=== PATIENT | female | born 1955 | race Caucasian/White ===

== ENCOUNTER 2017-07-03 21:02 | Inpatient (IN) | payer OTHER ==
[~2017-07-03] VITALS: Ht 152.4 cm; Wt 68.0 kg
[~2017-07-03 21:02] MED LIST: ATOR40TA28 PO; CLOP75TA32 PO; Captopril PO; FAMO-136 PO; FURO20TA4 PO; IPRA4AER IH; LORA0.5T2 PO; METO25 PO; NITR0.4T SL; TRAM50TA2 PO; WARF-67 PO; WARF4TAB72 PO
[2017-07-03 21:35] LABS: BASOPHILS % (AUTO) 0.6 % (0.0-5.0); EOSINOPHILS % (AUTO) 1.9 % (0.0-8.0); HEMATOCRIT 44.3 % (36-48); LYMPHOCYTES % (AUTO) 26.4 % (21.0-51.0); MEAN CORPUSCULAR HEMOGLOBIN 33.8 pg (27.0-33.0); MEAN CORPUSCULAR HGB CONC 34.7 g/dL (32.0-36.0); MEAN CORPUSCULAR VOLUME 97.4 fL (79-99); MONOCYTES % (AUTO) 8.6 % (3.0-13.0); NEUTROPHILS % (AUTO) 62.5 % (40.0-77.0); PLATELET COUNT (AUTO) 290 K/uL (130-400); RED BLOOD CELL COUNT(AUTO) 4.55 MIL/uL (4.00-5.50); RED CELL DISTRIBUTION WIDTH 13.5 % (11.0-15.5); WHITE BLOOD COUNT (AUTO) 11.9 K/uL (4.8-10.8)
[2017-07-03 21:44] LABS: CARBON DIOXIDE 29 mmol/L (21-32); CHLORIDE 104 mmol/L (101-111); CREATININE 0.8 mg/dL (0.5-1.5); GLOMERULAR FILTR. RATE CALC 78 mL/min (>60); GLUCOSE,RANDOM 112 mg/dL (70-105); POTASSIUM 3.3 mmol/L (3.5-5.1); SODIUM SERUM 140 mmol/L (136-145); UREA NITROGEN, BLOOD 10 mg/dL (7-18)
[2017-07-03 21:46] LABS: PARTIAL THROMBOPLASTIN TIME 50.2 SEC (26.3-35.5)
[2017-07-03 21:51] LABS: PROTHROMBIN TIME > 63.0 SEC (9.6-11.6)
[2017-07-03 21:52] LABS: INR 6.64 (0.85-1.15)
[2017-07-03 21:59] LABS: ALANINE AMINOTRANSFERASE 31 U/L (12-78); ALBUMIN 3.6 g/dL (3.5-5.0); ASPARTATE AMINOTRANSFERASE 22 U/L (10-37); BILIRUBIN,TOTAL 0.2 mg/dL (0.2-1.0); CREATINE KINASE MB < 0.5 ng/mL (0.5-3.6); CREATINE KINASE, TOTAL 98 U/L (21-232); MYOGLOBIN 24 ng/mL (10-92); TOTAL PROTEIN, SERUM 7.4 g/dL (6.0-8.3)
[2017-07-03] MEDS ORDERED: IOPAMIDOL-370 75 ML VIAL IV ONE (22:05)
[2017-07-03] MEDS ORDERED: SODIUM CHLORIDE 0.9% 1000ML 1,000 ML IV SCH (23:45)
[2017-07-03] MEDS ORDERED: HYDRALAZINE HCL 20 MG/ML VIAL IV PRN (23:45)
[2017-07-04] MEDS ORDERED: ASPIRIN 325 MG TABLET ONE (00:14)
[2017-07-04] MEDS ORDERED: POTASSIUM CHLORIDE 10% ELIXIR 20 MEQ/15 ML UDCUP PO PRN (00:15)
[2017-07-04] MEDS ORDERED: POTASSIUM CHLORIDE 20 MEQ ERTAB PO PRN (00:15)
[2017-07-04] MEDS ORDERED: LIDOCAINE HCL-MPF 1% 2ML VIAL IJ PRN (00:15)
[2017-07-04] MEDS ORDERED: ONDANSETRON HCL MDV 20ML 2 MG/ML VIAL IVP PRN (00:15)
[2017-07-04] MEDS ORDERED: POTASSIUM CHLORIDE 20MEQ/100ML 100 ML IV PRN (00:15)
[2017-07-04 01:03] LABS: APPEARANCE,URINE Clear (CLEAR); BILIRUBIN,URINE Negative (NEGATIVE); COLOR,URINE Yellow (YELLOW); GLUCOSE, URINE (UA) Negative (NEGATIVE); KETONES,URINE Negative (NEGATIVE); LEUKOCYTE ESTERASE ,URINE Negative (NEGATIVE); NITRATE,URINE Negative (NEGATIVE); OCCULT BLOOD,URINE Negative (NEGATIVE); PROTEIN,URINE Negative (NEGATIVE)
[2017-07-04 01:11] LABS: AMPHET/METH SCREEN,URINE NEGATIVE (NEGATIVE); BARBITURATE SCREEN, URINE NEGATIVE (NEGATIVE); BENZODIAZEPINES SCREEN,URINE NEGATIVE (NEGATIVE); CANNABINOID SCREEN,URINE NEGATIVE (NEGATIVE); COCAINE SCREEN,URINE NEGATIVE (NEGATIVE); OPIATE SCREEN,URINE NEGATIVE (NEGATIVE); PHENCYCLIDINE SCREEN,URINE NEGATIVE (NEGATIVE)
[2017-07-04 02:54] VITALS: BP 107/63
[2017-07-04] MEDS: PHYTONADIONE 10 MG/1 ML AMP SQ SCH ×2 (03:30→19:09)
[2017-07-04] MEDS: PHYTONADIONE 10 MG/1 ML AMP ONE ×2 (03:53→04:29)
[2017-07-04] MEDS ORDERED: LORA10TA7 PO (04:23)
[2017-07-04] MEDS ORDERED: DOCU-116 PO (04:23)
[2017-07-04] MEDS ORDERED: LISI-617 PO (04:23)
[2017-07-04] MEDS ORDERED: ASCO-477 PO (04:23)
[2017-07-04] MEDS ORDERED: FOLI0.4T2 PO (04:23)
[2017-07-04] MEDS ORDERED: CYCL5TAB PO (04:23)
[2017-07-04 07:08] LABS: BASOPHILS % (AUTO) 0.5 % (0.0-5.0); EOSINOPHILS % (AUTO) 2.6 % (0.0-8.0); HEMATOCRIT 40.1 % (36-48); LYMPHOCYTES % (AUTO) 32.3 % (21.0-51.0); MEAN CORPUSCULAR HEMOGLOBIN 34.2 pg (27.0-33.0); MEAN CORPUSCULAR VOLUME 97.7 fL (79-99); MONOCYTES % (AUTO) 10.2 % (3.0-13.0); NEUTROPHILS % (AUTO) 54.4 % (40.0-77.0); PLATELET COUNT (AUTO) 243 K/uL (130-400); RED BLOOD CELL COUNT(AUTO) 4.11 MIL/uL (4.00-5.50); WHITE BLOOD COUNT (AUTO) 7.9 K/uL (4.8-10.8)
[2017-07-04 07:14] LABS: HEMOGLOBIN A1C 5.4 % (4.0-6.0)
[2017-07-04 07:19] LABS: CREATININE 0.6 mg/dL (0.5-1.5)
[2017-07-04 08:08] VITALS: BP 90/53
[2017-07-04 08:25] LABS: INR 6.34 (0.85-1.15); PROTHROMBIN TIME > 63.0 SEC (9.6-11.6)
[2017-07-04] MEDS ORDERED: ATOR40TA71 PO (10:53)
[2017-07-04] MEDS ORDERED: WARF4TAB72 PO (10:53)
[2017-07-04] MEDS ORDERED: WARF-67 PO (10:53)
[2017-07-04] MEDS: CLOPIDOGREL BISULFATE 75 MG TAB PO SCH (11:00)
[2017-07-04] MEDS: ASPIRIN 81MG TAB.CHEW PO SCH (11:00)
[2017-07-04] MEDS: FAMOTIDINE 20MG TAB 20 MG TAB PO SCH ×2 (11:00→20:17)
[2017-07-04 11:45] VITALS: BP 101/58
[2017-07-04] MEDS ORDERED: ACETAMINOPHEN 325 MG TAB ONE (13:31)
[2017-07-04] MEDS ORDERED: ACETAMINOPHEN 325 MG TAB PO PRN ×2 (15:45)
[2017-07-04 16:00] VITALS: BP 106/61
[2017-07-04 19:30] VITALS: BP 105/61
[2017-07-04] MEDS: ATORVASTATIN CALCIUM 40 MG TABLET PO SCH (20:17)
[2017-07-04 23:37] VITALS: BP 100/58
[2017-07-05 03:19] LABS: BASOPHILS % (AUTO) 0.8 % (0.0-5.0); EOSINOPHILS % (AUTO) 3.4 % (0.0-8.0); LYMPHOCYTES % (AUTO) 43.4 % (21.0-51.0); MEAN CORPUSCULAR HEMOGLOBIN 33.1 pg (27.0-33.0); MEAN CORPUSCULAR HGB CONC 33.8 g/dL (32.0-36.0); MEAN CORPUSCULAR VOLUME 97.9 fL (79-99); MONOCYTES % (AUTO) 9.9 % (3.0-13.0); NEUTROPHILS % (AUTO) 42.5 % (40.0-77.0); PLATELET COUNT (AUTO) 222 K/uL (130-400); RED BLOOD CELL COUNT(AUTO) 4.09 MIL/uL (4.00-5.50); RED CELL DISTRIBUTION WIDTH 13.6 % (11.0-15.5); WHITE BLOOD COUNT (AUTO) 6.8 K/uL (4.8-10.8)
[2017-07-05 03:26] LABS: CREATININE 0.6 mg/dL (0.5-1.5); POTASSIUM 3.9 mmol/L (3.5-5.1)
[2017-07-05 03:27] LABS: INR 2.55 (0.85-1.15); PARTIAL THROMBOPLASTIN TIME 35.6 SEC (26.3-35.5); PROTHROMBIN TIME 26.3 SEC (9.6-11.6)
[2017-07-05 03:35] VITALS: BP 93/55
[2017-07-05 07:43] VITALS: BP 105/65
[2017-07-05] MEDS: ASPIRIN 81MG TAB.CHEW PO SCH (09:25)
[2017-07-05] MEDS: FAMOTIDINE 20MG TAB 20 MG TAB PO SCH ×2 (09:25→20:46)
[2017-07-05] MEDS: CLOPIDOGREL BISULFATE 75 MG TAB PO SCH (09:25)
[2017-07-05 11:35] VITALS: BP 114/73
[2017-07-05] MEDS ORDERED: WARF2.5T47 PO (15:32)
[2017-07-05 16:12] VITALS: BP 137/79
[2017-07-05] MEDS ORDERED: WARFARIN SODIUM 2.5 MG TAB PO ONE (16:45)
[2017-07-05 19:47] VITALS: BP 112/68
[2017-07-05] MEDS: ATORVASTATIN CALCIUM 40 MG TABLET PO SCH (20:47)
== END 2017-07-05 22:00 | disposition home or self-care (01) | DRG 47 ==
LOC: EDH 21:02 → EDHIP 21:03 → 2AH 07-04 02:43
PROVIDERS: ADMIT Internal Medicine Nephrology; ATTEND Internal Medicine Nephrology
DX: G45.9 Transient cerebral ischemic attack, unspecified (principal); I11.0 Hypertensive heart disease with heart failure; I50.30 Unspecified diastolic (congestive) heart failure; R47.81 Slurred speech; E78.5 Hyperlipidemia, unspecified; E87.6 Hypokalemia; F17.210 Nicotine dependence, cigarettes, uncomplicated; I25.10 Atherosclerotic heart disease of native coronary artery without angina pectoris; R79.1 Abnormal coagulation profile; J44.9 Chronic obstructive pulmonary disease, unspecified; I25.2 Old myocardial infarction; Z79.82 Long term (current) use of aspirin; Z79.01 Long term (current) use of anticoagulants; Z79.899 Other long term (current) drug therapy; Z90.710 Acquired absence of both cervix and uterus; Z86.718 Personal history of other venous thrombosis and embolism; Z86.73 Personal history of transient ischemic attack (TIA), and cerebral infarction without residual deficits; Z82.49 Family history of ischemic heart disease and other diseases of the circulatory system; Z83.3 Family history of diabetes mellitus
CPT/HCPCS: 36415; 70450; 70496; 70498; 70544; 70547; 70551; 71045; 80048; 80053; 80061; 80305; 81003; 82550; 82553; 82948; 83036; 83874; 84484; 85025; 85610; 85730; 93005; 93306; 93970; J3430; J7030; Q9967

== ENCOUNTER 2017-08-02 18:34 | Inpatient (IN) | payer OTHER ==
[~2017-08-02] VITALS: Ht 152.4 cm; Wt 66.7 kg
[~2017-08-02 18:34] MED LIST changes: +ASCO-477 PO; -ATOR40TA28 PO; +ATOR40TA71 PO; +CYCL5TAB PO; -Captopril PO; +DOCU-116 PO; +FOLI0.4T2 PO; +LISI-617 PO; -LORA0.5T2 PO; +LORA10TA7 PO; -TRAM50TA2 PO; -WARF-67 PO; +WARF2.5T47 PO; -WARF4TAB72 PO
[2017-08-02 19:05] LABS: BASOPHILS % (AUTO) 0.5 % (0.0-5.0); EOSINOPHILS % (AUTO) 1.7 % (0.0-8.0); HEMATOCRIT 42.1 % (36-48); LYMPHOCYTES % (AUTO) 34.8 % (21.0-51.0); MEAN CORPUSCULAR HGB CONC 35.1 g/dL (32.0-36.0); MEAN CORPUSCULAR VOLUME 96.7 fL (79-99); MONOCYTES % (AUTO) 7.9 % (3.0-13.0); NEUTROPHILS % (AUTO) 55.1 % (40.0-77.0); NUCLEATED RED BLOOD CELLS 0.1 % (0.0-0.19); PLATELET COUNT (AUTO) 287 K/uL (130-400); RED BLOOD CELL COUNT(AUTO) 4.35 MIL/uL (4.00-5.50); RED CELL DISTRIBUTION WIDTH 13.2 % (11.0-15.5); WHITE BLOOD COUNT (AUTO) 10.3 K/uL (4.8-10.8)
[2017-08-02 19:12] LABS: CREATININE 0.9 mg/dL (0.5-1.5); POTASSIUM 3.2 mmol/L (3.5-5.1)
[2017-08-02 19:24] LABS: PARTIAL THROMBOPLASTIN TIME 45.8 SEC (26.3-35.5)
[2017-08-02 19:26] LABS: ALBUMIN 3.4 g/dL (3.5-5.0); BILIRUBIN,TOTAL 0.2 mg/dL (0.2-1.0); CREATINE KINASE MB 0.5 ng/mL (0.5-3.6); TOTAL PROTEIN, SERUM 7.1 g/dL (6.0-8.3)
[2017-08-02 19:54] LABS: INR 4.78 (0.85-1.15); PROTHROMBIN TIME 48.7 SEC (9.6-11.6)
[2017-08-02] MEDS ORDERED: MORPHINE SULFATE 4 MG/1ML SYG IVP PRN (23:15)
[2017-08-03 02:13] VITALS: BP 104/65
[2017-08-03] MEDS ORDERED: NITROGLYCERIN 0.4 MG SL TAB SL PRN ×2 (04:45→06:45)
[2017-08-03 04:50] VITALS: BP 103/65
[2017-08-03 05:22] LABS: HEMATOCRIT 39.8 % (36-48); MEAN CORPUSCULAR HEMOGLOBIN 33.5 pg (27.0-33.0); MEAN CORPUSCULAR HGB CONC 34.5 g/dL (32.0-36.0); MEAN CORPUSCULAR VOLUME 97.1 fL (79-99); PLATELET COUNT (AUTO) 241 K/uL (130-400); RED CELL DISTRIBUTION WIDTH 13.4 % (11.0-15.5); WHITE BLOOD COUNT (AUTO) 7.4 K/uL (4.8-10.8)
[2017-08-03 05:34] LABS: BILIRUBIN,TOTAL 0.2 mg/dL (0.2-1.0); CREATININE 0.7 mg/dL (0.5-1.5); POTASSIUM 3.5 mmol/L (3.5-5.1); TOTAL PROTEIN, SERUM 6.4 g/dL (6.0-8.3)
[2017-08-03 05:40] LABS: INR 5.07 (0.85-1.15); PROTHROMBIN TIME 51.6 SEC (9.6-11.6)
[2017-08-03] MEDS ORDERED: POTASSIUM CHLORIDE 10% ELIXIR 20 MEQ/15 ML UDCUP PO PRN ×2 (05:45)
[2017-08-03] MEDS ORDERED: POTASSIUM CHLORIDE 20 MEQ ERTAB PO PRN (05:45)
[2017-08-03] MEDS ORDERED: POTASSIUM CHLORIDE 20MEQ/100ML 100 ML IV PRN ×2 (05:45)
[2017-08-03] MEDS ORDERED: LIDOCAINE HCL-MPF 1% 2ML VIAL IVP PRN ×2 (05:45)
[2017-08-03] MEDS ORDERED: HYDRALAZINE HCL 20 MG/ML VIAL IV PRN (06:00)
[2017-08-03] MEDS ORDERED: ACETAMINOPHEN 325 MG TAB PO PRN (06:00)
[2017-08-03] MEDS ORDERED: ONDANSETRON HCL 4 MG/2 ML VIAL IV PRN (06:00)
[2017-08-03] MEDS ORDERED: FOLI0.8T PO (06:35)
[2017-08-03] MEDS ORDERED: AEC81 PO (06:35)
[2017-08-03] MEDS ORDERED: WARF2.5T85 PO (06:35)
[2017-08-03] MEDS ORDERED: WARF4TAB72 PO (06:35)
[2017-08-03] MEDS: POTASSIUM CHLORIDE 20 MEQ ERTAB PO PRN ×2 (06:50→09:47)
[2017-08-03 07:55] LABS: CREATINE KINASE MB < 0.5 ng/mL (0.5-3.6); CREATINE KINASE, TOTAL 93 U/L (21-232); MYOGLOBIN 19 ng/mL (10-92); TROPONIN I < 0.04 ng/mL (0.00-0.06)
[2017-08-03 08:00] VITALS: BP 99/63
[2017-08-03] MEDS: FOLIC ACID 0.8 MG PO SCH (09:00)
[2017-08-03] MEDS: DOCUSATE SODIUM 100 MG CAP PO SCH (09:46)
[2017-08-03] MEDS: LORATADINE 10 MG TABLET PO SCH (09:46)
[2017-08-03] MEDS: ASPIRIN 81 MG EC TAB PO SCH (09:46)
[2017-08-03] MEDS: FUROSEMIDE 20 MG TABLET PO SCH (09:46)
[2017-08-03] MEDS: FAMOTIDINE 20MG TAB 20 MG TAB PO SCH ×2 (09:47→20:43)
[2017-08-03] MEDS: LISINOPRIL 5 MG TABLET PO SCH (09:47)
[2017-08-03] MEDS: ASCORBIC ACID 500 MG TAB PO SCH (09:47)
[2017-08-03] MEDS: METOPROLOL TARTRATE 25 MG TAB PO SCH ×2 (09:51→21:00)
[2017-08-03] MEDS: IPRATROPIUM/ALBUTEROL SULFATE 3 ML SOLUTION IH PRN (10:45)
[2017-08-03 11:37] VITALS: BP 114/64
[2017-08-03 14:58] LABS: CREATINE KINASE MB < 0.5 ng/mL (0.5-3.6); CREATINE KINASE, TOTAL 89 U/L (21-232); MYOGLOBIN 19 ng/mL (10-92); TROPONIN I < 0.04 ng/mL (0.00-0.06)
[2017-08-03 15:55] VITALS: BP 97/57
[2017-08-03] MEDS: SODIUM CHLORIDE 0.9% 1000ML 1,000 ML IV SCH ×2 (17:50→17:51)
[2017-08-03 19:25] VITALS: BP 98/55
[2017-08-03] MEDS: CYCLOBENZAPRINE HCL 10 MG TABLET PO SCH (20:43)
[2017-08-03] MEDS: ATORVASTATIN CALCIUM 40 MG TABLET PO SCH (20:43)
[2017-08-04 00:18] VITALS: BP 110/58
[2017-08-04 04:20] VITALS: BP 106/67
[2017-08-04] MEDS: SODIUM CHLORIDE 0.9% 1000ML 1,000 ML IV SCH ×2 (05:27→16:31)
[2017-08-04 05:46] LABS: PARTIAL THROMBOPLASTIN TIME 41.7 SEC (26.3-35.5)
[2017-08-04 05:51] LABS: INR 4.44 (0.85-1.15); PROTHROMBIN TIME 45.3 SEC (9.6-11.6)
[2017-08-04] MEDS: IPRATROPIUM/ALBUTEROL SULFATE 3 ML SOLUTION IH PRN ×2 (07:26→21:10)
[2017-08-04 08:00] VITALS: BP 114/48
[2017-08-04] MEDS: FOLIC ACID 0.8 MG PO SCH (09:00)
[2017-08-04] MEDS: LISINOPRIL 5 MG TABLET PO SCH (09:03)
[2017-08-04] MEDS: FAMOTIDINE 20MG TAB 20 MG TAB PO SCH ×2 (09:03→21:26)
[2017-08-04] MEDS: FUROSEMIDE 20 MG TABLET PO SCH (09:04)
[2017-08-04] MEDS: ASCORBIC ACID 500 MG TAB PO SCH (09:04)
[2017-08-04] MEDS: LORATADINE 10 MG TABLET PO SCH (09:04)
[2017-08-04] MEDS: ASPIRIN 81 MG EC TAB PO SCH (09:04)
[2017-08-04] MEDS: DOCUSATE SODIUM 100 MG CAP PO SCH (09:04)
[2017-08-04 11:53] VITALS: BP 112/62
[2017-08-04 16:00] VITALS: BP 119/64
[2017-08-04 19:05] VITALS: BP 110/66
[2017-08-04] MEDS: METOPROLOL TARTRATE 25 MG TAB PO SCH (21:26)
[2017-08-04] MEDS: ATORVASTATIN CALCIUM 40 MG TABLET PO SCH (21:26)
[2017-08-04] MEDS: CYCLOBENZAPRINE HCL 10 MG TABLET PO SCH (21:28)
[2017-08-05 00:30] VITALS: BP 110/66
[2017-08-05 04:10] VITALS: BP 124/59
[2017-08-05] MEDS: SODIUM CHLORIDE 0.9% 1000ML 1,000 ML IV SCH ×2 (04:48→07:56)
[2017-08-05 06:22] LABS: INR 2.06 (0.85-1.15); PARTIAL THROMBOPLASTIN TIME 33.1 SEC (26.3-35.5); PROTHROMBIN TIME 21.3 SEC (9.6-11.6)
[2017-08-05] MEDS: IPRATROPIUM/ALBUTEROL SULFATE 3 ML SOLUTION IH PRN (07:16)
[2017-08-05] MEDS: METOPROLOL TARTRATE 25 MG TAB PO SCH (08:15)
[2017-08-05] MEDS: DOCUSATE SODIUM 100 MG CAP PO SCH (08:15)
[2017-08-05] MEDS: FUROSEMIDE 20 MG TABLET PO SCH (08:16)
[2017-08-05] MEDS: LISINOPRIL 5 MG TABLET PO SCH (08:16)
[2017-08-05] MEDS: LORATADINE 10 MG TABLET PO SCH (08:16)
[2017-08-05] MEDS: FAMOTIDINE 20MG TAB 20 MG TAB PO SCH (08:16)
[2017-08-05] MEDS: ASCORBIC ACID 500 MG TAB PO SCH (08:17)
[2017-08-05] MEDS: FOLIC ACID 0.8 MG PO SCH (08:17)
[2017-08-05] MEDS: ASPIRIN 81 MG EC TAB PO SCH (08:17)
[2017-08-05 08:52] VITALS: BP 108/62
[2017-08-05 12:05] VITALS: BP 130/75
[2017-08-05] MEDS ORDERED: IPRATROPIUM/ALBUTEROL SULFATE 3 ML SOLUTION IH PRN (12:45)
[2017-08-05] MEDS ORDERED: WARF3TAB59 PO (16:10)
[2017-08-05 16:33] VITALS: BP 122/66
[2017-08-05] MEDS ORDERED: WARFARIN SODIUM 2 MG TAB PO ONE (16:45)
== END 2017-08-05 16:50 | disposition home or self-care (01) | DRG 313 ==
LOC: EDH 18:34 → EDHIP 18:35 → UNDOADMIN 22:30 → 3CH 08-03 01:40
PROVIDERS: ADMIT Family Medicine; ATTEND Family Medicine
DX: R07.89 Other chest pain (principal); I25.10 Atherosclerotic heart disease of native coronary artery without angina pectoris; I11.0 Hypertensive heart disease with heart failure; I50.9 Heart failure, unspecified; M79.1 Myalgia; E78.5 Hyperlipidemia, unspecified; Z95.5 Presence of coronary angioplasty implant and graft; E87.6 Hypokalemia; F17.210 Nicotine dependence, cigarettes, uncomplicated; J44.9 Chronic obstructive pulmonary disease, unspecified; R79.1 Abnormal coagulation profile; T45.515A Adverse effect of anticoagulants, initial encounter; Z79.01 Long term (current) use of anticoagulants; I25.2 Old myocardial infarction; Z88.8 Allergy status to other drugs, medicaments and biological substances; Y92.89 Other specified places as the place of occurrence of the external cause; Z90.710 Acquired absence of both cervix and uterus; Z86.73 Personal history of transient ischemic attack (TIA), and cerebral infarction without residual deficits; Z83.3 Family history of diabetes mellitus; Z82.49 Family history of ischemic heart disease and other diseases of the circulatory system
CPT/HCPCS: 36415; 71045; 80053; 82550; 82553; 83874; 84132; 84484; 85025; 85027; 85610; 85730; 93005; 94640; 94664; 99291; J7030

== ENCOUNTER 2017-09-13 20:23 | Emergency (ER) | payer OTHER ==
[~2017-09-13 20:23] MED LIST changes: +AEC81 PO; -FOLI0.4T2 PO; +FOLI0.8T PO; -WARF2.5T47 PO; +WARF3TAB59 PO
[2017-09-13 21:07] LABS: BASOPHILS % (AUTO) 0.6 % (0.0-5.0); EOSINOPHILS % (AUTO) 2.1 % (0.0-8.0); HEMATOCRIT 40.9 % (36-48); LYMPHOCYTES % (AUTO) 22.2 % (21.0-51.0); MEAN CORPUSCULAR HEMOGLOBIN 32.1 pg (27.0-33.0); MEAN CORPUSCULAR VOLUME 94.3 fL (79-99); MONOCYTES % (AUTO) 9.5 % (3.0-13.0); NEUTROPHILS % (AUTO) 65.6 % (40.0-77.0); PLATELET COUNT (AUTO) 347 K/uL (130-400); RED BLOOD CELL COUNT(AUTO) 4.33 MIL/uL (4.00-5.50); RED CELL DISTRIBUTION WIDTH 13.8 % (11.0-15.5)
[2017-09-13 21:18] LABS: PARTIAL THROMBOPLASTIN TIME 42.7 SEC (26.3-35.5)
[2017-09-13 21:19] LABS: POTASSIUM 3.4 mmol/L (3.5-5.1)
[2017-09-13 21:28] LABS: ALBUMIN 3.5 g/dL (3.5-5.0); BILIRUBIN,TOTAL 0.2 mg/dL (0.2-1.0); TOTAL PROTEIN, SERUM 7.3 g/dL (6.0-8.3)
[2017-09-13 21:41] LABS: CREATINE KINASE MB 0.5 ng/mL (0.5-3.6); CREATINE KINASE, TOTAL 91 U/L (21-232); INR 4.06 (0.85-1.15); MYOGLOBIN 28 ng/mL (10-92); TROPONIN I < 0.04 ng/mL (0.00-0.06)
[2017-09-13 21:54] LABS: PROTHROMBIN TIME 41.5 SEC (9.6-11.6)
[2017-09-27] MEDS ORDERED: CALC-909 PO (00:53)
[2017-09-27] MEDS ORDERED: WARF4TAB72 PO (00:53)
[2017-09-27] MEDS ORDERED: MECL12.585 PO (00:53)
[2017-09-27] MEDS ORDERED: CYAN-35 PO (00:53)
== END 2017-09-14 03:46 | disposition home or self-care (01) ==
LOC: EDH 20:23
DX: T45.511A Poisoning by anticoagulants, accidental (unintentional), initial encounter (principal); H81.10 Benign paroxysmal vertigo, unspecified ear; E78.5 Hyperlipidemia, unspecified; I10 Essential (primary) hypertension; I25.2 Old myocardial infarction; J44.9 Chronic obstructive pulmonary disease, unspecified; Z88.6 Allergy status to analgesic agent; Z88.8 Allergy status to other drugs, medicaments and biological substances; Z86.73 Personal history of transient ischemic attack (TIA), and cerebral infarction without residual deficits; Z72.0 Tobacco use; Z79.899 Other long term (current) drug therapy; Y92.89 Other specified places as the place of occurrence of the external cause
CPT/HCPCS: 36415; 70450; 70551; 80053; 82550; 82553; 82948; 83874; 84484; 85025; 85610; 85730; 93005

== ENCOUNTER 2018-01-05 18:30 | Inpatient (IN) | payer OTHER ==
[~2018-01-05] VITALS: Ht 152.4 cm; Wt 67.6 kg
[~2018-01-05 18:30] MED LIST changes: -AEC81 PO; -ASCO-477 PO; +ASCO500C18 PO; +ATOR40TA69 PO; -ATOR40TA71 PO; +CALC600T12 PO; +CLOP75TA14 PO; -CLOP75TA32 PO; +CYAN-35 PO; +CYCL10 PO; -CYCL5TAB PO; -IPRA4AER IH; +LORA10CA9 PO; -LORA10TA7 PO; +MECL12.585 PO; -METO25 PO; +METO25TA6 PO; -WARF3TAB59 PO
[2018-01-05 19:14] LABS: BASOPHILS % (AUTO) 0.8 % (0.0-5.0); CREATININE 0.6 mg/dL (0.5-1.5); EOSINOPHILS % (AUTO) 2.4 % (0.0-8.0); HEMATOCRIT 47.5 % (36-48); LYMPHOCYTES % (AUTO) 38.5 % (21.0-51.0); MEAN CORPUSCULAR HEMOGLOBIN 28.4 pg (27.0-33.0); MEAN CORPUSCULAR HGB CONC 32.7 g/dL (32.0-36.0); MEAN CORPUSCULAR VOLUME 86.9 fL (79-99); MONOCYTES % (AUTO) 10.2 % (3.0-13.0); NEUTROPHILS % (AUTO) 48.1 % (40.0-77.0); PLATELET COUNT (AUTO) 242 K/uL (130-400); POTASSIUM 4.2 mmol/L (3.5-5.1); RED BLOOD CELL COUNT(AUTO) 5.46 MIL/uL (4.00-5.50); RED CELL DISTRIBUTION WIDTH 23.8 % (11.0-15.5)
[2018-01-05 19:18] LABS: ALBUMIN 3.6 g/dL (3.5-5.0); BILIRUBIN,TOTAL 0.4 mg/dL (0.2-1.0); TOTAL PROTEIN, SERUM 7.1 g/dL (6.0-8.3)
[2018-01-05 19:55] LABS: INR 2.34 (0.85-1.15); PARTIAL THROMBOPLASTIN TIME 41.9 SEC (26.3-35.5); PROTHROMBIN TIME 24.2 SEC (9.6-11.6)
[2018-01-05] MEDS ORDERED: NITROGLYCERIN 1GM/1 INCH PACKET TD ONE (20:05)
[2018-01-05] MEDS ORDERED: ASPIRIN 325 MG TABLET ONE (20:05)
[2018-01-05] MEDS ORDERED: NITROGLYCERIN 0.4 MG SL TAB SL PRN (21:15)
[2018-01-05 21:30] VITALS: BP 130/75
[2018-01-05] MEDS: SODIUM CHLORIDE 0.9% 1000ML 1,000 ML IV SCH (21:50)
[2018-01-05] MEDS ORDERED: ONDANSETRON HCL 4 MG/2 ML VIAL IV PRN (22:00)
[2018-01-05] MEDS ORDERED: ACETAMINOPHEN 325 MG TAB PO PRN (22:00)
[2018-01-05] MEDS ORDERED: fiber PO (22:11)
[2018-01-05] MEDS ORDERED: WARF3TAB59 PO (22:11)
[2018-01-05] MEDS ORDERED: IPRA4AER IH (22:11)
[2018-01-05] MEDS ORDERED: iron PO (22:11)
[2018-01-05] MEDS ORDERED: ALBU1.252 IH (22:11)
[2018-01-05] MEDS ORDERED: METOPROLOL TARTRATE 25 MG TAB ONE (22:27)
[2018-01-05] MEDS ORDERED: ATORVASTATIN CALCIUM 40 MG TABLET ONE (22:27)
[2018-01-05] MEDS ORDERED: CYCLOBENZAPRINE HCL 10 MG TABLET ONE (22:27)
[2018-01-05] MEDS ORDERED: FAMOTIDINE 20MG TAB 20 MG TAB ONE (22:27)
[2018-01-05] MEDS ORDERED: SODIUM CHLORIDE 0.9% 1000ML 1,000 ML IV ONE (22:28)
[2018-01-05 23:23] VITALS: BP 100/52
[2018-01-06 01:10] LABS: CREATINE KINASE, TOTAL 92 U/L (21-232); MYOGLOBIN 25 ng/mL (10-92); TROPONIN I < 0.04 ng/mL (0.00-0.06)
[2018-01-06 04:14] VITALS: BP 103/59
[2018-01-06] MEDS ORDERED: ALBUTEROL SULFATE 0.042% 1.25 MG/3 ML INH IH ONE (05:58)
[2018-01-06] MEDS: ALBUTEROL SULFATE 0.042% 1.25 MG/3 ML INH IH SCH ×2 (06:23→19:49)
[2018-01-06] MEDS: SODIUM CHLORIDE 0.9% 1000ML 1,000 ML IV SCH ×2 (06:42→18:41)
[2018-01-06] MEDS ORDERED: IPRATROPIUM/ALBUTEROL SULFATE 3 ML SOLUTION IH PRN (07:20)
[2018-01-06 07:21] LABS: BASOPHILS % (AUTO) 0.8 % (0.0-5.0); EOSINOPHILS % (AUTO) 3.4 % (0.0-8.0); HEMATOCRIT 43.5 % (36-48); LYMPHOCYTES % (AUTO) 35.2 % (21.0-51.0); MEAN CORPUSCULAR HEMOGLOBIN 28.8 pg (27.0-33.0); MEAN CORPUSCULAR HGB CONC 32.9 g/dL (32.0-36.0); MEAN CORPUSCULAR VOLUME 87.6 fL (79-99); MONOCYTES % (AUTO) 10.3 % (3.0-13.0); NEUTROPHILS % (AUTO) 50.3 % (40.0-77.0); PLATELET COUNT (AUTO) 226 K/uL (130-400); RED BLOOD CELL COUNT(AUTO) 4.97 MIL/uL (4.00-5.50); RED CELL DISTRIBUTION WIDTH 23.5 % (11.0-15.5); WHITE BLOOD COUNT (AUTO) 6.7 K/uL (4.8-10.8)
[2018-01-06 07:35] LABS: ALBUMIN 2.9 g/dL (3.5-5.0); BILIRUBIN,TOTAL 0.2 mg/dL (0.2-1.0); CREATININE 0.8 mg/dL (0.5-1.5); POTASSIUM 4.7 mmol/L (3.5-5.1); TOTAL PROTEIN, SERUM 6.2 g/dL (6.0-8.3)
[2018-01-06 07:36] LABS: INR 2.6 (0.85-1.15); PROTHROMBIN TIME 26.8 SEC (9.6-11.6)
[2018-01-06 07:39] LABS: CHOLESTEROL 111 mg/dL (<200); CREATINE KINASE, TOTAL 90 U/L (21-232); HDL CHOLESTEROL 33 mg/dL (35-85); LDL DIRECT 61 mg/dL (0-99); MYOGLOBIN 20 ng/mL (10-92); TRIGLYCERIDES 106 mg/dL (30-200); TROPONIN I < 0.04 ng/mL (0.00-0.06)
[2018-01-06 08:00] VITALS: BP 112/64
[2018-01-06] MEDS ORDERED: FAMOTIDINE 20MG TAB 20 MG TAB PO SCH (09:00)
[2018-01-06] MEDS: ASCORBIC ACID 500 MG TAB PO SCH (09:22)
[2018-01-06] MEDS: FUROSEMIDE 20 MG TABLET PO SCH (09:22)
[2018-01-06] MEDS: LISINOPRIL 5 MG TABLET PO SCH (09:22)
[2018-01-06] MEDS: FOLIC ACID 1 MG TABLET PO SCH (09:22)
[2018-01-06] MEDS: CLOPIDOGREL BISULFATE 75 MG TAB PO SCH (09:22)
[2018-01-06] MEDS: PANTOPRAZOLE SODIUM 40 MG TABLET.DR PO SCH (09:22)
[2018-01-06] MEDS: LORATADINE 10 MG TABLET PO SCH (09:22)
[2018-01-06] MEDS: DOCUSATE SODIUM 100 MG CAP PO SCH (09:23)
[2018-01-06] MEDS: CYANOCOBALAMIN (VITAMIN B-12) 1,000 MCG TABLET PO SCH (09:23)
[2018-01-06] MEDS: PSYLLIUM SEED 1 EACH PACKET PO SCH ×2 (09:23→20:16)
[2018-01-06] MEDS: FERROUS SULFATE 325 MG TABLET.DR PO SCH (09:23)
[2018-01-06] MEDS: CALCIUM CARBONATE 500 MG TABLET PO SCH (09:23)
[2018-01-06] MEDS: METOPROLOL TARTRATE 25 MG TAB PO SCH ×2 (09:23→20:16)
[2018-01-06 12:00] VITALS: BP 122/65
[2018-01-06 16:00] VITALS: BP 116/69
[2018-01-06] MEDS ORDERED: WARFARIN SODIUM 1 MG TAB PO SCH (16:00)
[2018-01-06 19:00] VITALS: BP 116/70
[2018-01-06] MEDS: METHYLPREDNISOLONE SOD SUCC 40MG/ML 1ML IVP SCH (20:15)
[2018-01-06] MEDS ORDERED: CYCLOBENZAPRINE HCL 10 MG TABLET PO SCH (21:00)
[2018-01-06] MEDS ORDERED: ATORVASTATIN CALCIUM 40 MG TABLET PO SCH (21:00)
[2018-01-06 23:07] VITALS: BP 110/66
[2018-01-07] MEDS: SODIUM CHLORIDE 0.9% 1000ML 1,000 ML IV SCH ×2 (02:09→13:50)
[2018-01-07 03:20] VITALS: BP 99/57
[2018-01-07 05:35] LABS: BASOPHILS % (AUTO) 0.7 % (0.0-5.0); CREATININE 0.6 mg/dL (0.5-1.5); EOSINOPHILS % (AUTO) 0.1 % (0.0-8.0); HEMATOCRIT 43.9 % (36-48); LYMPHOCYTES % (AUTO) 21.3 % (21.0-51.0); MEAN CORPUSCULAR HEMOGLOBIN 28.3 pg (27.0-33.0); MEAN CORPUSCULAR HGB CONC 32.4 g/dL (32.0-36.0); MEAN CORPUSCULAR VOLUME 87.6 fL (79-99); MONOCYTES % (AUTO) 2.8 % (3.0-13.0); NEUTROPHILS % (AUTO) 75.1 % (40.0-77.0); NUCLEATED RED BLOOD CELLS 0.1 % (0.0-0.19); PLATELET COUNT (AUTO) 217 K/uL (130-400); POTASSIUM 4.6 mmol/L (3.5-5.1); RED BLOOD CELL COUNT(AUTO) 5.02 MIL/uL (4.00-5.50); RED CELL DISTRIBUTION WIDTH 23.2 % (11.0-15.5); WHITE BLOOD COUNT (AUTO) 5.4 K/uL (4.8-10.8)
[2018-01-07 05:39] LABS: INR 2.74 (0.85-1.15); PROTHROMBIN TIME 28.2 SEC (9.6-11.6)
[2018-01-07 05:40] LABS: HEMOGLOBIN A1C 5.8 % (4.0-6.0)
[2018-01-07] MEDS: ALBUTEROL SULFATE 0.042% 1.25 MG/3 ML INH IH SCH (06:21)
[2018-01-07 08:00] VITALS: BP 103/60
[2018-01-07] MEDS: METHYLPREDNISOLONE SOD SUCC 40MG/ML 1ML IVP SCH (09:00)
[2018-01-07] MEDS: CLOPIDOGREL BISULFATE 75 MG TAB PO SCH (11:15)
[2018-01-07] MEDS: FUROSEMIDE 20 MG TABLET PO SCH (11:15)
[2018-01-07] MEDS: LORATADINE 10 MG TABLET PO SCH (11:15)
[2018-01-07] MEDS: CYANOCOBALAMIN (VITAMIN B-12) 1,000 MCG TABLET PO SCH (11:15)
[2018-01-07] MEDS: ASCORBIC ACID 500 MG TAB PO SCH (11:16)
[2018-01-07] MEDS: FERROUS SULFATE 325 MG TABLET.DR PO SCH (11:16)
[2018-01-07] MEDS: CALCIUM CARBONATE 500 MG TABLET PO SCH (11:16)
[2018-01-07] MEDS: DOCUSATE SODIUM 100 MG CAP PO SCH (11:16)
[2018-01-07] MEDS: METOPROLOL TARTRATE 25 MG TAB PO SCH (11:16)
[2018-01-07] MEDS: PANTOPRAZOLE SODIUM 40 MG TABLET.DR PO SCH (11:16)
[2018-01-07] MEDS: LISINOPRIL 5 MG TABLET PO SCH (11:16)
[2018-01-07] MEDS: FOLIC ACID 1 MG TABLET PO SCH (11:17)
[2018-01-07] MEDS: PSYLLIUM SEED 1 EACH PACKET PO SCH (11:17)
[2018-01-07 12:00] VITALS: BP 115/77
== END 2018-01-07 14:15 | disposition home or self-care (01) | DRG 203 ==
LOC: EDH 18:30 → EDHIP 18:31 → 3DH 20:48
PROVIDERS: ADMIT Internal Medicine; ATTEND Internal Medicine
DX: M94.0 Chondrocostal junction syndrome [Tietze] (principal); E78.5 Hyperlipidemia, unspecified; R07.89 Other chest pain; I25.10 Atherosclerotic heart disease of native coronary artery without angina pectoris; I10 Essential (primary) hypertension; J44.9 Chronic obstructive pulmonary disease, unspecified; I45.10 Unspecified right bundle-branch block; F17.200 Nicotine dependence, unspecified, uncomplicated; I25.2 Old myocardial infarction; Z95.5 Presence of coronary angioplasty implant and graft; Z90.710 Acquired absence of both cervix and uterus; Z86.73 Personal history of transient ischemic attack (TIA), and cerebral infarction without residual deficits; Z86.718 Personal history of other venous thrombosis and embolism; Z88.5 Allergy status to narcotic agent; Z83.3 Family history of diabetes mellitus; Z82.5 Family history of asthma and other chronic lower respiratory diseases; Z82.49 Family history of ischemic heart disease and other diseases of the circulatory system; Z82.3 Family history of stroke; Z82.0 Family history of epilepsy and other diseases of the nervous system; Z80.9 Family history of malignant neoplasm, unspecified; Z88.8 Allergy status to other drugs, medicaments and biological substances
CPT/HCPCS: 36415; 71045; 80048; 80053; 80061; 82550; 83036; 83735; 83874; 83880; 84484; 85025; 85610; 85730; 93005; 94640; 94664; 94760; J2920; J7030

== ENCOUNTER 2018-05-19 20:02 | Emergency (ER) | payer OTHER ==
[~2018-05-19 20:02] MED LIST changes: +ALBU1.252 IH; +IPRA4AER IH; -MECL12.585 PO; +WARF3TAB59 PO; +fiber PO; +iron PO
[2018-05-19] MEDS ORDERED: ASPIRIN 325 MG TABLET ONE (20:31)
[2018-05-19 20:36] LABS: BASOPHILS % (AUTO) 0.7 % (0.0-5.0); HEMATOCRIT 48.1 % (36-48); LYMPHOCYTES % (AUTO) 26.2 % (21.0-51.0); MEAN CORPUSCULAR HEMOGLOBIN 34.2 pg (27.0-33.0); MEAN CORPUSCULAR HGB CONC 34.1 g/dL (32.0-36.0); MEAN CORPUSCULAR VOLUME 100.1 fL (79-99); MONOCYTES % (AUTO) 6.9 % (3.0-13.0); NEUTROPHILS % (AUTO) 64.2 % (40.0-77.0); PLATELET COUNT (AUTO) 253 K/uL (130-400); RED CELL DISTRIBUTION WIDTH 13.7 % (11.0-15.5); WHITE BLOOD COUNT (AUTO) 10.6 K/uL (4.8-10.8)
[2018-05-19 20:51] LABS: CREATININE 0.8 mg/dL (0.5-1.5); POTASSIUM 3.9 mmol/L (3.5-5.1)
[2018-05-19 20:55] LABS: ALBUMIN 3.3 g/dL (3.5-5.0); BILIRUBIN,TOTAL 0.2 mg/dL (0.2-1.0); TOTAL PROTEIN, SERUM 6.8 g/dL (6.0-8.3)
[2018-05-19 21:03] LABS: INR 2.31 (0.85-1.15); PARTIAL THROMBOPLASTIN TIME 38.9 SEC (26.3-35.5); PROTHROMBIN TIME 23.9 SEC (9.6-11.6)
[2018-05-19] MEDS ORDERED: NITROGLYCERIN 1GM/1 INCH PACKET TD ONE (21:08)
== END 2018-05-20 00:49 | disposition home or self-care (01) ==
LOC: EDH 20:02
DX: R07.2 Precordial pain (principal); R42 Dizziness and giddiness; J44.9 Chronic obstructive pulmonary disease, unspecified; E78.5 Hyperlipidemia, unspecified; I10 Essential (primary) hypertension; I25.2 Old myocardial infarction; Z86.73 Personal history of transient ischemic attack (TIA), and cerebral infarction without residual deficits; Z88.5 Allergy status to narcotic agent; Z88.6 Allergy status to analgesic agent; Z88.8 Allergy status to other drugs, medicaments and biological substances; Z90.49 Acquired absence of other specified parts of digestive tract; Z90.710 Acquired absence of both cervix and uterus; Z98.890 Other specified postprocedural states
CPT/HCPCS: 36415; 71045; 80053; 82550; 84484; 85025; 85378; 85610; 85730; 93005

== ENCOUNTER 2018-05-20 08:33 | Emergency (ER) | payer OTHER ==
[2018-05-20 10:32] LABS: BASOPHILS % (AUTO) 0.7 % (0.0-5.0); EOSINOPHILS % (AUTO) 2.5 % (0.0-8.0); LYMPHOCYTES % (AUTO) 25.5 % (21.0-51.0); MEAN CORPUSCULAR HEMOGLOBIN 34.5 pg (27.0-33.0); MEAN CORPUSCULAR HGB CONC 34.4 g/dL (32.0-36.0); MEAN CORPUSCULAR VOLUME 100.2 fL (79-99); MONOCYTES % (AUTO) 7.4 % (3.0-13.0); NEUTROPHILS % (AUTO) 63.9 % (40.0-77.0); NUCLEATED RED BLOOD CELLS 0.1 % (0.0-0.19); PLATELET COUNT (AUTO) 243 K/uL (130-400); RED BLOOD CELL COUNT(AUTO) 5.09 MIL/uL (4.00-5.50); RED CELL DISTRIBUTION WIDTH 13.6 % (11.0-15.5); WHITE BLOOD COUNT (AUTO) 9.7 K/uL (4.8-10.8)
[2018-05-20 10:34] LABS: CREATININE 0.7 mg/dL (0.5-1.5); POTASSIUM 4.3 mmol/L (3.5-5.1)
[2018-05-20 10:38] LABS: ALBUMIN 3.6 g/dL (3.5-5.0); BILIRUBIN,TOTAL 0.3 mg/dL (0.2-1.0); TOTAL PROTEIN, SERUM 7.3 g/dL (6.0-8.3)
[2018-05-20 10:46] LABS: INR 2.41 (0.85-1.15); PARTIAL THROMBOPLASTIN TIME 40.3 SEC (26.3-35.5); PROTHROMBIN TIME 24.9 SEC (9.6-11.6)
== END 2018-05-20 11:07 | disposition home or self-care (01) ==
LOC: EDH 08:33
DX: R07.89 Other chest pain (principal); R06.02 Shortness of breath; R11.0 Nausea; I10 Essential (primary) hypertension; E78.5 Hyperlipidemia, unspecified; I25.2 Old myocardial infarction; J44.9 Chronic obstructive pulmonary disease, unspecified; Z86.73 Personal history of transient ischemic attack (TIA), and cerebral infarction without residual deficits; Z88.6 Allergy status to analgesic agent; Z72.0 Tobacco use; V49.59XA Passenger injured in collision with other motor vehicles in traffic accident, initial encounter; Y93.89 Activity, other specified; Y92.89 Other specified places as the place of occurrence of the external cause; Y99.8 Other external cause status
CPT/HCPCS: 36415; 71045; 80053; 82550; 84484; 85025; 85610; 85730; 93005

== ENCOUNTER 2018-10-24 17:05 | Emergency (ER) | payer SELFPAY ==
[2018-10-24 17:49] LABS: BASOPHILS % (AUTO) 0.7 % (0.0-5.0); EOSINOPHILS % (AUTO) 2.5 % (0.0-8.0); HEMATOCRIT 46.1 % (36-48); LYMPHOCYTES % (AUTO) 31.2 % (21.0-51.0); MEAN CORPUSCULAR HEMOGLOBIN 34.7 pg (27.0-33.0); MEAN CORPUSCULAR VOLUME 99.3 fL (79-99); MONOCYTES % (AUTO) 9.4 % (3.0-13.0); NEUTROPHILS % (AUTO) 56.2 % (40.0-77.0); PLATELET COUNT (AUTO) 244 K/uL (130-400); RED BLOOD CELL COUNT(AUTO) 4.64 MIL/uL (4.00-5.50); WHITE BLOOD COUNT (AUTO) 9.5 K/uL (4.8-10.8)
[2018-10-24 17:59] LABS: CREATININE 0.7 mg/dL (0.5-1.5); POTASSIUM 3.8 mmol/L (3.5-5.1)
[2018-10-24 18:02] LABS: PARTIAL THROMBOPLASTIN TIME 43.4 SEC (26.3-35.5)
[2018-10-24 18:03] LABS: ALBUMIN 3.4 g/dL (3.5-5.0); BILIRUBIN,DIRECT 0.1 mg/dL (0.0-0.3); BILIRUBIN,TOTAL 0.2 mg/dL (0.2-1.0); TOTAL PROTEIN, SERUM 6.9 g/dL (6.0-8.3)
[2018-10-24] MEDS ORDERED: SODIUM CHLORIDE 0.9% 1000ML 1,000 ML IV ONE ×2 (18:35→19:19)
[2018-10-24 18:36] LABS: INR 3.5 (0.85-1.15); PROTHROMBIN TIME 35.9 SEC (9.6-11.6)
[2018-10-24] MEDS ORDERED: IOHEXOL-350 75 ML VIAL IV ONE (19:25)
== END 2018-10-24 22:11 | disposition home or self-care (01) ==
LOC: EDH 17:05
DX: R09.1 Pleurisy (principal); J44.9 Chronic obstructive pulmonary disease, unspecified; E78.5 Hyperlipidemia, unspecified; I10 Essential (primary) hypertension; I25.2 Old myocardial infarction; Z86.711 Personal history of pulmonary embolism; Z79.01 Long term (current) use of anticoagulants; Z86.73 Personal history of transient ischemic attack (TIA), and cerebral infarction without residual deficits; Z98.890 Other specified postprocedural states; Z90.49 Acquired absence of other specified parts of digestive tract; Z90.710 Acquired absence of both cervix and uterus; Z88.6 Allergy status to analgesic agent; Z88.1 Allergy status to other antibiotic agents; Z88.8 Allergy status to other drugs, medicaments and biological substances
CPT/HCPCS: 36415; 71046; 71275; 80048; 80076; 82550; 83690; 84484 ×2; 85025; 85610; 85730; 93005 ×2; 96360; 96361; 99285; J7030 ×2; Q9967

== ENCOUNTER 2019-01-19 17:38 | Emergency (ER) | payer OTHER ==
[2019-01-19 18:37] LABS: BASOPHILS % (AUTO) 0.6 % (0.0-5.0); EOSINOPHILS % (AUTO) 2.3 % (0.0-8.0); HEMATOCRIT 47.5 % (36-48); LYMPHOCYTES % (AUTO) 23.4 % (21.0-51.0); MEAN CORPUSCULAR HEMOGLOBIN 35.5 pg (27.0-33.0); MEAN CORPUSCULAR HGB CONC 35.2 g/dL (32.0-36.0); MEAN CORPUSCULAR VOLUME 100.9 fL (79-99); MONOCYTES % (AUTO) 7.8 % (3.0-13.0); NEUTROPHILS % (AUTO) 65.9 % (40.0-77.0); NUCLEATED RED BLOOD CELLS 0.1 % (0.0-0.19); PLATELET COUNT (AUTO) 238 K/uL (130-400); RED CELL DISTRIBUTION WIDTH 13.3 % (11.0-15.5); WHITE BLOOD COUNT (AUTO) 8.1 K/uL (4.8-10.8)
[2019-01-19 18:46] LABS: CREATININE 0.8 mg/dL (0.5-1.5); POTASSIUM 3.7 mmol/L (3.5-5.1)
[2019-01-19 18:49] LABS: PARTIAL THROMBOPLASTIN TIME 49.2 SEC (26.3-35.5)
[2019-01-19 18:50] LABS: ALBUMIN 3.5 g/dL (3.5-5.0); BILIRUBIN,TOTAL 0.3 mg/dL (0.2-1.0); TOTAL PROTEIN, SERUM 7.2 g/dL (6.0-8.3)
[2019-01-19 18:55] LABS: APPEARANCE,URINE Clear (CLEAR); BILIRUBIN,URINE Negative (NEGATIVE); COLOR,URINE Yellow (YELLOW); GLUCOSE, URINE (UA) Negative (NEGATIVE); KETONES,URINE Negative (NEGATIVE); LEUKOCYTE ESTERASE ,URINE Trace (NEGATIVE); NITRATE,URINE Negative (NEGATIVE); OCCULT BLOOD,URINE Negative (NEGATIVE); PROTEIN,URINE Negative (NEGATIVE)
[2019-01-19 18:59] LABS: INR 4.96 (0.85-1.15)
[2019-01-19 19:03] LABS: AMPHET/METH SCREEN,URINE NEGATIVE (NEGATIVE); BARBITURATE SCREEN, URINE NEGATIVE (NEGATIVE); BENZODIAZEPINES SCREEN,URINE NEGATIVE (NEGATIVE); CANNABINOID SCREEN,URINE NEGATIVE (NEGATIVE); COCAINE SCREEN,URINE NEGATIVE (NEGATIVE); OPIATE SCREEN,URINE NEGATIVE (NEGATIVE); PHENCYCLIDINE SCREEN,URINE NEGATIVE (NEGATIVE)
[2019-01-19 19:06] LABS: B-TYPE NATRIURETIC PEPTIDE 28 pg/mL (0-100)
[2019-01-19 19:09] LABS: BACTERIA,URINE Few /HPF (None Seen); MUCUS,URINE Few LPF (None Seen)
[2019-01-19] MEDS ORDERED: SODIUM CHLORIDE 0.9% 1000ML 1,000 ML IV ONE (20:16)
== END 2019-01-19 22:49 | disposition home or self-care (01) ==
LOC: EDH 17:38
DX: T45.511A Poisoning by anticoagulants, accidental (unintentional), initial encounter (principal); R55 Syncope and collapse; R07.89 Other chest pain; R42 Dizziness and giddiness; R53.1 Weakness; J44.9 Chronic obstructive pulmonary disease, unspecified; E78.5 Hyperlipidemia, unspecified; I10 Essential (primary) hypertension; I25.2 Old myocardial infarction; Z86.73 Personal history of transient ischemic attack (TIA), and cerebral infarction without residual deficits; Z72.0 Tobacco use; Z90.49 Acquired absence of other specified parts of digestive tract; Z90.710 Acquired absence of both cervix and uterus; Z98.890 Other specified postprocedural states; Z88.5 Allergy status to narcotic agent; Z88.6 Allergy status to analgesic agent; Y92.89 Other specified places as the place of occurrence of the external cause
CPT/HCPCS: 36415; 70450; 71045; 80053; 80305; 81001; 82150; 82550; 83605; 83690; 83880; 84484 ×2; 85025; 85610; 85730; 87040; 87804 ×2; 93005 ×2; 96360; 96361; 99285; J7030

== ENCOUNTER 2019-03-28 18:11 | Inpatient (IN) | payer OTHER ==
[~2019-03-28] VITALS: Ht 152.4 cm; Wt 67.0 kg
[2019-03-28] MEDS ORDERED: SODIUM CHLORIDE 0.9% 1000ML 1,000 ML IV ONE ×2 (18:22→23:59)
[2019-03-28 18:41] LABS: BASOPHILS % (AUTO) 0.6 % (0.0-5.0); EOSINOPHILS % (AUTO) 1.7 % (0.0-8.0); LYMPHOCYTES % (AUTO) 35.9 % (21.0-51.0); MEAN CORPUSCULAR HEMOGLOBIN 33.1 pg (27.0-33.0); MEAN CORPUSCULAR VOLUME 97.6 fL (79-99); MONOCYTES % (AUTO) 10.2 % (3.0-13.0); NEUTROPHILS % (AUTO) 51.4 % (40.0-77.0); PLATELET COUNT (AUTO) 277 K/uL (130-400); RED BLOOD CELL COUNT(AUTO) 4.92 MIL/uL (4.00-5.50); RED CELL DISTRIBUTION WIDTH 12.5 % (11.0-15.5); WHITE BLOOD COUNT (AUTO) 9.3 K/uL (4.8-10.8)
[2019-03-28 19:04] LABS: INR 2.06 (0.85-1.15); PARTIAL THROMBOPLASTIN TIME 33.1 SEC (26.3-35.5)
[2019-03-28 19:17] LABS: CREATININE 0.8 mg/dL (0.5-1.5); POTASSIUM 3.4 mmol/L (3.5-5.1)
[2019-03-28 19:26] LABS: ALBUMIN 3.8 g/dL (3.5-5.0); BILIRUBIN,TOTAL 0.4 mg/dL (0.2-1.0); TOTAL PROTEIN, SERUM 7.5 g/dL (6.0-8.3)
[2019-03-28 20:59] LABS: APPEARANCE,URINE Clear (CLEAR); BILIRUBIN,URINE Negative (NEGATIVE); COLOR,URINE Yellow (YELLOW); GLUCOSE, URINE (UA) Negative (NEGATIVE); KETONES,URINE Negative (NEGATIVE); LEUKOCYTE ESTERASE ,URINE Negative (NEGATIVE); NITRATE,URINE Negative (NEGATIVE); OCCULT BLOOD,URINE Negative (NEGATIVE); PH,URINE 7.5 (5.0-8.0); PROTEIN,URINE Negative (NEGATIVE); UROBILINOGEN,URINE 0.2 mg/dL (0.2-1.0)
[2019-03-28 21:14] LABS: AMPHET/METH SCREEN,URINE NEGATIVE (NEGATIVE); BARBITURATE SCREEN, URINE NEGATIVE (NEGATIVE); BENZODIAZEPINES SCREEN,URINE NEGATIVE (NEGATIVE); CANNABINOID SCREEN,URINE NEGATIVE (NEGATIVE); COCAINE SCREEN,URINE NEGATIVE (NEGATIVE); OPIATE SCREEN,URINE NEGATIVE (NEGATIVE); PHENCYCLIDINE SCREEN,URINE NEGATIVE (NEGATIVE)
[2019-03-28] MEDS: SODIUM CHLORIDE 0.9% 1000ML 1,000 ML IV SCH (23:35)
[2019-03-28] MEDS ORDERED: ONDANSETRON HCL 4 MG/2 ML VIAL IV PRN (23:45)
[2019-03-28] MEDS ORDERED: ACETAMINOPHEN 325 MG TAB PO PRN ×2 (23:45)
[2019-03-28] MEDS ORDERED: FAMOTIDINE/PF 20 MG/2 ML VIAL IV STA (23:47)
[2019-03-28] MEDS ORDERED: FAMOTIDINE/PF 20 MG/2 ML VIAL IV ONE (23:59)
[2019-03-29] VITALS (8 sets, daily range): BP systolic 104–143; BP diastolic 58–75
[2019-03-29 00:05] LABS: HEMOGLOBIN A1C 5.8 % (4.0-6.0)
[2019-03-29 07:11] LABS: BASOPHILS % (AUTO) 0.5 % (0.0-5.0); EOSINOPHILS % (AUTO) 2.6 % (0.0-8.0); HEMATOCRIT 43.3 % (36-48); LYMPHOCYTES % (AUTO) 37.9 % (21.0-51.0); MEAN CORPUSCULAR HEMOGLOBIN 32.1 pg (27.0-33.0); MEAN CORPUSCULAR HGB CONC 32.1 g/dL (32.0-36.0); MONOCYTES % (AUTO) 8.7 % (3.0-13.0); PLATELET COUNT (AUTO) 221 K/uL (130-400); RED BLOOD CELL COUNT(AUTO) 4.33 MIL/uL (4.00-5.50); RED CELL DISTRIBUTION WIDTH 12.5 % (11.0-15.5); WHITE BLOOD COUNT (AUTO) 7.6 K/uL (4.8-10.8)
[2019-03-29 07:48] LABS: ALBUMIN 2.8 g/dL (3.5-5.0); BILIRUBIN,TOTAL 0.2 mg/dL (0.2-1.0); CREATININE 0.7 mg/dL (0.5-1.5); TOTAL PROTEIN, SERUM 5.9 g/dL (6.0-8.3)
[2019-03-29] MEDS: METOPROLOL TARTRATE 25 MG TAB PO SCH ×2 (08:37→20:55)
--- NOTE | 2019-03-29 08:45 | NUR ---
BEDSIDE SWALLOW DONE WITH PATIENT PRIOR TO GIVING PO MEDICATION. NO SIGNS OF ASPIRATION NOTED
[2019-03-29] MEDS ORDERED: NITROGLYCERIN 0.4 MG SL TAB SL PRN (09:00)
[2019-03-29] MEDS: FAMOTIDINE 20MG TAB 20 MG TAB PO SCH ×2 (09:00→20:55)
[2019-03-29] MEDS: CLOPIDOGREL BISULFATE 75 MG TAB PO SCH (09:00)
[2019-03-29] MEDS ORDERED: FAMOTIDINE/PF 20 MG/2 ML VIAL IV SCH (09:00)
[2019-03-29] MEDS ORDERED: METOPROLOL TARTRATE 25 MG TAB PO SCH (09:00)
[2019-03-29] MEDS: LISINOPRIL 5 MG TABLET PO SCH (09:00)
[2019-03-29] MEDS ORDERED: CLOPIDOGREL BISULFATE 75 MG TAB PO SCH (09:00)
[2019-03-29] MEDS ORDERED: IPRATROPIUM/ALBUTEROL SULFATE 3 ML SOLUTION IH PRN (09:00)
[2019-03-29] MEDS ORDERED: CALCIUM 600 + VITAMIN D 400 TABLET PO SCH (09:08)
[2019-03-29] MEDS: SODIUM CHLORIDE 0.9% 1000ML 1,000 ML IV SCH (09:54)
[2019-03-29] MEDS: LORATADINE 10 MG TABLET PO SCH (09:55)
[2019-03-29] MEDS: DOCUSATE SODIUM 100 MG CAP PO SCH (09:55)
[2019-03-29] MEDS: CYANOCOBALAMIN (VITAMIN B-12) 1,000 MCG TABLET PO SCH (09:55)
[2019-03-29] MEDS: PSYLLIUM SEED 1 EACH PACKET PO SCH ×2 (09:55→20:54)
[2019-03-29] MEDS: FUROSEMIDE 20 MG TABLET PO SCH (09:55)
[2019-03-29] MEDS: ASCORBIC ACID 500 MG TAB PO SCH (09:55)
--- NOTE | 2019-03-29 12:05 | NUR ---
NURSE WITH PATIENT DURING FIRST BITES OF LUNCH, TOLERATED WELL. NO SIGN OF ASPIRATION NOTED.
[2019-03-29] MEDS: CALCIUM 600 + VITAMIN D 400 TABLET PO SCH (16:57)
[2019-03-29] MEDS: WARFARIN SODIUM 1 MG TAB PO SCH (16:58)
--- NOTE | 2019-03-29 17:31 | NUR ---
INITIAL: Met with pt this afternoon to discuss dcp. Pt mentions that she lives w room mate Kike. She mentions that he assists her w transportation and helps to purchase her medications. Pt states that prior to admission she was independent w ambulation and ADLs. She states that she does have a chair, nebulizer and crutches. Per pt she feels safe and comfortable to return home at pa. Low income packet provided. CM to continue to follow and wait for Md recommendations. Addendum: 03/29/19 at 1733 by JOSE LOUIS Amended: Links added.
[2019-03-29] MEDS ORDERED: ALBUTEROL SULFATE 0.042% 1.25 MG/3 ML INH IH SCH (18:00)
[2019-03-29] MEDS ORDERED: CYCLOBENZAPRINE HCL 10 MG TABLET PO SCH (21:00)
[2019-03-29] MEDS ORDERED: ATORVASTATIN CALCIUM 20 MG TABLET PO SCH (21:00)
[2019-03-29] MEDS ORDERED: ATORVASTATIN CALCIUM 40 MG TABLET PO SCH (21:00)
[2019-03-30 04:00] VITALS: BP 101/57
[2019-03-30 04:25] LABS: BASOPHILS % (AUTO) 0.8 % (0.0-5.0); EOSINOPHILS % (AUTO) 2.7 % (0.0-8.0); LYMPHOCYTES % (AUTO) 39.5 % (21.0-51.0); MEAN CORPUSCULAR HEMOGLOBIN 32.6 pg (27.0-33.0); MEAN CORPUSCULAR VOLUME 98.9 fL (79-99); MONOCYTES % (AUTO) 10.4 % (3.0-13.0); NEUTROPHILS % (AUTO) 46.3 % (40.0-77.0); PLATELET COUNT (AUTO) 226 K/uL (130-400); RED BLOOD CELL COUNT(AUTO) 4.35 MIL/uL (4.00-5.50); RED CELL DISTRIBUTION WIDTH 12.4 % (11.0-15.5); WHITE BLOOD COUNT (AUTO) 6.7 K/uL (4.8-10.8)
[2019-03-30 04:38] LABS: CREATININE 0.7 mg/dL (0.5-1.5); POTASSIUM 4.2 mmol/L (3.5-5.1)
[2019-03-30 07:20] VITALS: BP 119/56
[2019-03-30] MEDS: FAMOTIDINE 20MG TAB 20 MG TAB PO SCH (08:59)
[2019-03-30] MEDS: FUROSEMIDE 20 MG TABLET PO SCH (09:00)
[2019-03-30] MEDS: CLOPIDOGREL BISULFATE 75 MG TAB PO SCH (09:00)
[2019-03-30] MEDS: DOCUSATE SODIUM 100 MG CAP PO SCH (09:00)
[2019-03-30] MEDS: LISINOPRIL 5 MG TABLET PO SCH (09:00)
[2019-03-30] MEDS: CALCIUM 600 + VITAMIN D 400 TABLET PO SCH ×2 (09:00→16:36)
[2019-03-30] MEDS: PSYLLIUM SEED 1 EACH PACKET PO SCH (09:01)
[2019-03-30] MEDS: METOPROLOL TARTRATE 25 MG TAB PO SCH (09:01)
[2019-03-30] MEDS: CYANOCOBALAMIN (VITAMIN B-12) 1,000 MCG TABLET PO SCH (09:01)
[2019-03-30] MEDS: ASCORBIC ACID 500 MG TAB PO SCH (09:01)
[2019-03-30] MEDS: LORATADINE 10 MG TABLET PO SCH (09:01)
--- NOTE | 2019-03-30 10:00 | NUR ---
DYSPHAGIA EVAL COMPLETED. -S/S OF ASPIRATION. RECOMMEND REGULAR TEXTURE, THIN LIQUIDS; PILLS WHOLE WITH LIQUIDS. Addendum: 03/30/19 at 1302 by DANILO HAWKINS, [facility] Amended: Links added.
--- NOTE | 2019-03-30 10:15 | NUR ---
COGNITIVE EVAL COMPLETE. COGNITIVE-LINGUISTIC ABILITIES WITHIN FUNCTIONAL LIMITS. EVALUATION: Pt AAOX3. Pt REQUESTS WANTS AND NEEDS INDEPENDENTLY. Pt INTELLIGIBLE AT 100% ACCURACY TO THE UNFAMILIAR LISTENER. Pt COMMUNICATING AT CONVERSATIONAL LEVEL WITH NO DEFICITS IDENTIFIED AT THIS TIME. Pt COMPLETED COGNITIVE-LINGUISTIC EVALUATION TARGETING: ORIENTATION, ATTENTION/CONCENTRATION, MEMORY (IMMEDIATE, SHORT-TERM AND LONG-TERM), PROBLEM SOLVING, LOGIC/REASONING/INFERENCE, THOUGHT ORGANIZATION, FUNCTIONAL MATH AND TELLING TIME. Pt ABLE TO COMPLETE TASKS WITH CORRECT AND TIMELY ANSWERS TO ALL SECTIONS. G-CODES SPOKEN LANGUAGE EXPRESSION: [id number] Addendum: 03/30/19 at 1305 by DANILO HAWKINS [facility] Amended: Links added.
[2019-03-30 11:30] VITALS: BP 116/66
[2019-03-30 15:30] VITALS: BP 133/58
[2019-03-30] MEDS: WARFARIN SODIUM 1 MG TAB PO SCH (16:36)
[2019-03-30] MEDS ORDERED: WARFARIN SODIUM 2 MG TAB PO SCH (17:45)
--- NOTE | 2019-03-30 18:20 | NUR ---
DISCHARGE PT TAKEN TO PRIVATE VEHICLE VIA WC BY MYSELF, Isacc MORRIS RN. NO DISTRESS NOTED. SIGNIFICANT OTHER AWAITING FOR PT IN VEHICLE.
== END 2019-03-30 18:15 | disposition home or self-care (01) | DRG 69 ==
LOC: EDH 18:11 → EDHIP 18:12 → 2DH 03-29 02:24
PROVIDERS: ADMIT Hospitalist; ATTEND Hospitalist
DX: G45.9 Transient cerebral ischemic attack, unspecified (principal); D68.2 Hereditary deficiency of other clotting factors; E78.5 Hyperlipidemia, unspecified; F17.210 Nicotine dependence, cigarettes, uncomplicated; I10 Essential (primary) hypertension; I25.2 Old myocardial infarction; J44.9 Chronic obstructive pulmonary disease, unspecified; Z79.01 Long term (current) use of anticoagulants; Z79.02 Long term (current) use of antithrombotics/antiplatelets; Z82.0 Family history of epilepsy and other diseases of the nervous system; Z82.3 Family history of stroke; Z82.49 Family history of ischemic heart disease and other diseases of the circulatory system; Z82.5 Family history of asthma and other chronic lower respiratory diseases; Z83.3 Family history of diabetes mellitus; Z86.73 Personal history of transient ischemic attack (TIA), and cerebral infarction without residual deficits; Z90.710 Acquired absence of both cervix and uterus; Z90.49 Acquired absence of other specified parts of digestive tract; Z88.1 Allergy status to other antibiotic agents; Z88.5 Allergy status to narcotic agent; Z88.8 Allergy status to other drugs, medicaments and biological substances
CPT/HCPCS: 36415; 70450; 70551; 80048; 80053; 80305; 81003; 82550; 82948; 83036; 84484; 85025; 85610; 85730; 92522; 92610; 93005; 94640; 94664; 97039; 99291; G0378; J3490; J7030

== ENCOUNTER 2019-04-19 17:56 | Emergency (ER) | payer OTHER ==
[~2019-04-19 17:56] MED LIST changes: -FOLI0.8T PO; -iron PO
[2019-04-19 19:27] LABS: BASOPHILS % (AUTO) 0.5 % (0.0-5.0); EOSINOPHILS % (AUTO) 1.3 % (0.0-8.0); HEMATOCRIT 48.3 % (36-48); LYMPHOCYTES % (AUTO) 24.8 % (21.0-51.0); MEAN CORPUSCULAR HEMOGLOBIN 33.3 pg (27.0-33.0); MEAN CORPUSCULAR HGB CONC 34.6 g/dL (32.0-36.0); MEAN CORPUSCULAR VOLUME 96.2 fL (79-99); MONOCYTES % (AUTO) 7.4 % (3.0-13.0); NEUTROPHILS % (AUTO) 65.7 % (40.0-77.0); PLATELET COUNT (AUTO) 264 K/uL (130-400); RED BLOOD CELL COUNT(AUTO) 5.02 MIL/uL (4.00-5.50); RED CELL DISTRIBUTION WIDTH 12.4 % (11.0-15.5)
[2019-04-19 19:45] LABS: INR 3.1 (0.85-1.15); PARTIAL THROMBOPLASTIN TIME 41.4 SEC (26.3-35.5); PROTHROMBIN TIME 31.2 SEC (9.6-11.6)
[2019-04-19 19:51] LABS: CREATININE 0.8 mg/dL (0.5-1.5); POTASSIUM 3.3 mmol/L (3.5-5.1)
[2019-04-19 19:55] LABS: ALBUMIN 3.6 g/dL (3.5-5.0); BILIRUBIN,TOTAL 0.3 mg/dL (0.2-1.0); TOTAL PROTEIN, SERUM 6.9 g/dL (6.0-8.3)
[2019-04-19 20:19] LABS: B-TYPE NATRIURETIC PEPTIDE 38 pg/mL (0-100)
[2019-04-19] MEDS ORDERED: POTASSIUM CHLORIDE 20 MEQ ERTAB PO ONE (22:11)
== END 2019-04-19 22:32 | disposition home or self-care (01) ==
LOC: EDH 17:56
DX: R07.89 Other chest pain (principal); E87.6 Hypokalemia; I10 Essential (primary) hypertension; I25.2 Old myocardial infarction; Z88.6 Allergy status to analgesic agent; Z88.8 Allergy status to other drugs, medicaments and biological substances; Z90.49 Acquired absence of other specified parts of digestive tract; Z86.73 Personal history of transient ischemic attack (TIA), and cerebral infarction without residual deficits; Z72.0 Tobacco use
CPT/HCPCS: 36415; 71045; 80053; 82550; 83880; 84484; 85025; 85610; 85730; 93005

== ENCOUNTER 2019-05-26 11:01 | Emergency (ER) | payer OTHER ==
[2019-05-26 12:44] LABS: BASOPHILS % (AUTO) 0.8 % (0.0-5.0); EOSINOPHILS % (AUTO) 2.6 % (0.0-8.0); HEMATOCRIT 48.4 % (36-48); LYMPHOCYTES % (AUTO) 34.7 % (21.0-51.0); MEAN CORPUSCULAR HEMOGLOBIN 32.8 pg (27.0-33.0); MEAN CORPUSCULAR HGB CONC 33.1 g/dL (32.0-36.0); MEAN CORPUSCULAR VOLUME 99.2 fL (79-99); MONOCYTES % (AUTO) 10.7 % (3.0-13.0); NEUTROPHILS % (AUTO) 50.8 % (40.0-77.0); PLATELET COUNT (AUTO) 307 K/uL (130-400); RED BLOOD CELL COUNT(AUTO) 4.88 MIL/uL (4.00-5.50); RED CELL DISTRIBUTION WIDTH 12.9 % (11.0-15.5); WHITE BLOOD COUNT (AUTO) 9.1 K/uL (4.8-10.8)
[2019-05-26 12:50] LABS: CREATININE 0.8 mg/dL (0.5-1.5); PARTIAL THROMBOPLASTIN TIME 49.9 SEC (26.3-35.5); POTASSIUM 3.8 mmol/L (3.5-5.1)
[2019-05-26 13:27] LABS: PROTHROMBIN TIME 41.5 SEC (9.6-11.6)
[2019-05-26 13:28] LABS: INR 4.18 (0.85-1.15)
== END 2019-05-26 14:03 | disposition home or self-care (01) ==
LOC: EDH 11:01
DX: M79.605 Pain in left leg (principal); M79.604 Pain in right leg; I10 Essential (primary) hypertension; I25.2 Old myocardial infarction; Z90.49 Acquired absence of other specified parts of digestive tract; Z72.0 Tobacco use; Z88.5 Allergy status to narcotic agent; Z88.8 Allergy status to other drugs, medicaments and biological substances; Z88.1 Allergy status to other antibiotic agents; Z88.6 Allergy status to analgesic agent
CPT/HCPCS: 36415; 80048; 85025; 85610; 85730; 93970

== ENCOUNTER 2019-05-31 18:04 | Inpatient (IN) | payer OTHER ==
[~2019-05-31] VITALS: Ht 152.4 cm; Wt 68.4 kg
[2019-05-31 18:33] LABS: BASOPHILS % (AUTO) 0.8 % (0.0-5.0); EOSINOPHILS % (AUTO) 1.9 % (0.0-8.0); HEMATOCRIT 46.3 % (36-48); LYMPHOCYTES % (AUTO) 31.1 % (21.0-51.0); MEAN CORPUSCULAR HEMOGLOBIN 32.8 pg (27.0-33.0); MEAN CORPUSCULAR HGB CONC 33.7 g/dL (32.0-36.0); MEAN CORPUSCULAR VOLUME 97.5 fL (79-99); MONOCYTES % (AUTO) 10.3 % (3.0-13.0); NEUTROPHILS % (AUTO) 55.8 % (40.0-77.0); PLATELET COUNT (AUTO) 297 K/uL (130-400); RED BLOOD CELL COUNT(AUTO) 4.75 MIL/uL (4.00-5.50); RED CELL DISTRIBUTION WIDTH 12.6 % (11.0-15.5); WHITE BLOOD COUNT (AUTO) 9.3 K/uL (4.8-10.8)
[2019-05-31 18:44] LABS: CREATININE 0.9 mg/dL (0.5-1.5); POTASSIUM 3.8 mmol/L (3.5-5.1)
[2019-05-31 18:46] LABS: PARTIAL THROMBOPLASTIN TIME 43.9 SEC (26.3-35.5)
[2019-05-31] MEDS ORDERED: ASPIRIN 325 MG TABLET ONE (18:46)
[2019-05-31 18:49] LABS: ALBUMIN 3.6 g/dL (3.5-5.0); BILIRUBIN,TOTAL 0.3 mg/dL (0.2-1.0); TOTAL PROTEIN, SERUM 7.7 g/dL (6.0-8.3)
[2019-05-31 18:50] LABS: INR 3.56 (0.85-1.15); PROTHROMBIN TIME 36.6 SEC (9.6-11.6)
[2019-05-31] MEDS ORDERED: NITROGLYCERIN 0.4 MG SL TAB SL ONE (20:28)
[2019-05-31] MEDS ORDERED: LACTULOSE 20 GM/30 ML UDCUP PO PRN (21:15)
[2019-05-31] MEDS ORDERED: HYDRALAZINE HCL 20 MG/ML VIAL IV PRN (21:15)
[2019-05-31] MEDS ORDERED: NITROGLYCERIN 0.4 MG SL TAB SL PRN (21:15)
[2019-05-31] MEDS ORDERED: ONDANSETRON HCL 4 MG/2 ML VIAL IV PRN (21:15)
[2019-05-31] MEDS ORDERED: ACETAMINOPHEN 325 MG TAB PO PRN ×2 (21:15)
[2019-05-31] MEDS ORDERED: ACETAMINOPHEN 325 MG TAB ONE (21:27)
[2019-05-31] MEDS ORDERED: IPRATROPIUM/ALBUTEROL SULFATE 3 ML SOLUTION IH ONE (22:54)
[2019-05-31 23:42] VITALS: BP 115/64
--- NOTE | 2019-06-01 00:13 | NUR ---
HOME MEDS Paged Sid Llamas Np re pts home meds,pending reconciliation.
[2019-06-01 02:44] LABS: BASOPHILS % (AUTO) 0.4 % (0.0-5.0); EOSINOPHILS % (AUTO) 2.7 % (0.0-8.0); HEMATOCRIT 42.2 % (36-48); LYMPHOCYTES % (AUTO) 30.3 % (21.0-51.0); MEAN CORPUSCULAR HEMOGLOBIN 32.6 pg (27.0-33.0); MEAN CORPUSCULAR HGB CONC 33.2 g/dL (32.0-36.0); MEAN CORPUSCULAR VOLUME 98.4 fL (79-99); MONOCYTES % (AUTO) 9.7 % (3.0-13.0); NEUTROPHILS % (AUTO) 56.5 % (40.0-77.0); PLATELET COUNT (AUTO) 267 K/uL (130-400); RED BLOOD CELL COUNT(AUTO) 4.29 MIL/uL (4.00-5.50); RED CELL DISTRIBUTION WIDTH 12.6 % (11.0-15.5); WHITE BLOOD COUNT (AUTO) 8.9 K/uL (4.8-10.8)
[2019-06-01 02:56] LABS: PARTIAL THROMBOPLASTIN TIME 44.1 SEC (26.3-35.5)
[2019-06-01 02:58] LABS: CREATININE 0.9 mg/dL (0.5-1.5); POTASSIUM 3.5 mmol/L (3.5-5.1)
[2019-06-01 03:08] LABS: PROTHROMBIN TIME 42.5 SEC (9.6-11.6)
[2019-06-01 03:09] LABS: INR 4.16 (0.85-1.15)
[2019-06-01 03:43] VITALS: BP 98/58
--- NOTE | 2019-06-01 05:23 | NUR ---
SLEPT Pt slept fairly well.Voiced no complaints of chest pain.
[2019-06-01] MEDS: IPRATROPIUM/ALBUTEROL SULFATE 3 ML SOLUTION IH PRN ×2 (07:04→18:21)
[2019-06-01 07:19] VITALS: BP 105/62
[2019-06-01] MEDS ORDERED: LISINOPRIL 5 MG TABLET PO SCH (09:00)
[2019-06-01] MEDS ORDERED: FUROSEMIDE 20 MG TABLET PO SCH (09:00)
[2019-06-01] MEDS: FAMOTIDINE 20MG TAB 20 MG TAB PO SCH ×2 (09:05→21:20)
[2019-06-01] MEDS: DOCUSATE SODIUM 100 MG CAP PO SCH (09:05)
[2019-06-01] MEDS: CYANOCOBALAMIN (VITAMIN B-12) 1,000 MCG TABLET PO SCH (09:05)
[2019-06-01] MEDS: ASPIRIN 325 MG TABLET PO SCH (09:05)
[2019-06-01] MEDS: CLOPIDOGREL BISULFATE 75 MG TAB PO SCH (09:05)
[2019-06-01] MEDS: ASCORBIC ACID 500 MG TAB PO SCH (09:05)
[2019-06-01] MEDS: METOPROLOL TARTRATE 25 MG TAB PO SCH ×2 (09:06→21:19)
[2019-06-01] MEDS: CALCIUM CARBONATE 500 MG TABLET PO SCH ×2 (09:06→21:20)
[2019-06-01] MEDS: LORATADINE 10 MG TABLET PO SCH (09:06)
[2019-06-01 11:02] VITALS: BP 110/65
--- NOTE | 2019-06-01 11:36 | NUR ---
DR. YOUNG WAS PAGED FOR THE CONSULT AT THIS TIME. WAITING FOR THE CALL BACK.
--- NOTE | 2019-06-01 12:54 | NUR ---
paged dr. marx again for the consult.
--- NOTE | 2019-06-01 15:10 | NUR ---
Nutrition Education Pt denies need for Coumadin Food and Drug Interaction and demonstrates previous knowledge of nutrition education. Pt received Heart Healthy Nutrition education. ELDA provided reference materials and handouts and answered all of Pt's questions or concerns. Pt was encouraged to notify as additional questions or concerns arise. Addendum: 06/01/19 at [address] Amended: Links added.
--- NOTE | 2019-06-01 15:24 | NUR ---
RD Notification Pt admitted for Chest pain. Pt with coumadin medication - Pt denies need for nutrition education. ELDA provided heart healthy nutrition education. Recommend to continue Heart healthy diet order. ELDA to continue to monitor. Addendum: 06/01/19 at [address] Amended: Links added.
[2019-06-01 15:42] VITALS: BP 100/62
--- NOTE | 2019-06-01 16:39 | NUR ---
INITIAL SW met with patient. Patient lives with friend, Kike Gomez, [phone]. No home services. DME: shower chair, BPM, cane, nebulizer. Patient is able to complete ADL's and drives. PCP is Dr. Joshua Lucero. Pharmacy is [facility]. DCP is home. Demographic sheet indicates that patient has no insurance or benefits.but she states that she has [facility]. Patient is a [place] citizen and has worked in the past. She was provided with community resources for post hospitalization follow up. Patient was also provided with Good RX card for prescriptions and educated on [facility] $4 medication program and [facility] Plus $5 medication program. Patient is being assisted by [employer] for financial matters. Addendum: 06/01/19 at 1643 by RONEN MALONEY SS Amended: Links added.
--- NOTE | 2019-06-01 16:44 | NUR ---
call dr. marx on his cellphone and notified him of the consult. he verbalized that he will see the patient tonight.
[2019-06-01] MEDS ORDERED: LIDOCAINE HCL-MPF 1% 2ML VIAL IV PRN (18:00)
[2019-06-01] MEDS ORDERED: POTASSIUM CHLORIDE 10% ELIXIR 20 MEQ/15 ML UDCUP PO PRN (18:00)
[2019-06-01] MEDS ORDERED: POTASSIUM CHLORIDE 10MEQ/100ML 100 ML IV PRN (18:00)
[2019-06-01] MEDS: POTASSIUM CHLORIDE 20 MEQ ERTAB PO PRN ×2 (18:30→18:56)
[2019-06-01 19:00] VITALS: BP 114/59
--- NOTE | 2019-06-01 20:00 | NUR ---
STATUS Pt denies chest pain,service dog at bedside.Pt is awaiting for Cardiology to see her.
[2019-06-01] MEDS ORDERED: CYCLOBENZAPRINE HCL 10 MG TABLET PO SCH (21:00)
[2019-06-01] MEDS ORDERED: ATORVASTATIN CALCIUM 20 MG TABLET PO SCH (21:00)
[2019-06-01] MEDS ORDERED: ATORVASTATIN CALCIUM 40 MG TABLET PO SCH (21:00)
[2019-06-02] VITALS: BP 108/63
[2019-06-02 04:00] VITALS: BP 107/62
--- NOTE | 2019-06-02 04:23 | NUR ---
PAIN FREE Pt slept well.Voiced no complaints of chest pain.
[2019-06-02 05:39] LABS: BASOPHILS % (AUTO) 0.8 % (0.0-5.0); EOSINOPHILS % (AUTO) 4.5 % (0.0-8.0); HEMATOCRIT 42.1 % (36-48); LYMPHOCYTES % (AUTO) 36.4 % (21.0-51.0); MEAN CORPUSCULAR HEMOGLOBIN 32.3 pg (27.0-33.0); MEAN CORPUSCULAR HGB CONC 32.5 g/dL (32.0-36.0); MEAN CORPUSCULAR VOLUME 99.3 fL (79-99); MONOCYTES % (AUTO) 10.4 % (3.0-13.0); NEUTROPHILS % (AUTO) 47.6 % (40.0-77.0); PLATELET COUNT (AUTO) 254 K/uL (130-400); RED BLOOD CELL COUNT(AUTO) 4.24 MIL/uL (4.00-5.50); RED CELL DISTRIBUTION WIDTH 12.7 % (11.0-15.5); WHITE BLOOD COUNT (AUTO) 7.8 K/uL (4.8-10.8)
[2019-06-02 06:09] LABS: INR 2.58 (0.85-1.15); PROTHROMBIN TIME 26.9 SEC (9.6-11.6)
[2019-06-02 06:10] LABS: CREATININE 0.7 mg/dL (0.5-1.5); POTASSIUM 4.4 mmol/L (3.5-5.1)
[2019-06-02] MEDS: IPRATROPIUM/ALBUTEROL SULFATE 3 ML SOLUTION IH PRN (06:46)
[2019-06-02 07:47] VITALS: BP_SYST 106; BP_SYST 132; BP_DIAS 60; BP_DIAS 61
[2019-06-02] MEDS: FAMOTIDINE 20MG TAB 20 MG TAB PO SCH (08:44)
[2019-06-02] MEDS: CLOPIDOGREL BISULFATE 75 MG TAB PO SCH (08:44)
[2019-06-02] MEDS: ASCORBIC ACID 500 MG TAB PO SCH (08:45)
[2019-06-02] MEDS: ASPIRIN 325 MG TABLET PO SCH (08:45)
[2019-06-02] MEDS: CYANOCOBALAMIN (VITAMIN B-12) 1,000 MCG TABLET PO SCH (08:45)
[2019-06-02] MEDS: CALCIUM CARBONATE 500 MG TABLET PO SCH (08:45)
[2019-06-02] MEDS: METOPROLOL TARTRATE 25 MG TAB PO SCH (08:45)
[2019-06-02] MEDS: DOCUSATE SODIUM 100 MG CAP PO SCH (08:45)
[2019-06-02] MEDS: LORATADINE 10 MG TABLET PO SCH (08:45)
--- NOTE | 2019-06-02 09:35 | NUR ---
CALL DR YOUNG AND PAGED HIM AT THIS TIME. WILL WAIT FOR HIS CALL BACK
[2019-06-02 10:38] VITALS: BP 129/66
== END 2019-06-02 16:00 | disposition home or self-care (01) | DRG 311 ==
LOC: EDH 18:04 → EDHIP 18:05 → OBSVTOIN 18:05 → 3CH 23:11
PROVIDERS: ADMIT Internal Medicine; ATTEND Internal Medicine
DX: I24.9 Acute ischemic heart disease, unspecified (principal); R79.1 Abnormal coagulation profile; I10 Essential (primary) hypertension; F17.210 Nicotine dependence, cigarettes, uncomplicated; E78.5 Hyperlipidemia, unspecified; J44.9 Chronic obstructive pulmonary disease, unspecified; I25.2 Old myocardial infarction; Z86.718 Personal history of other venous thrombosis and embolism; Z95.5 Presence of coronary angioplasty implant and graft; Z90.710 Acquired absence of both cervix and uterus; Z90.49 Acquired absence of other specified parts of digestive tract; Z88.5 Allergy status to narcotic agent; Z88.8 Allergy status to other drugs, medicaments and biological substances; Z86.73 Personal history of transient ischemic attack (TIA), and cerebral infarction without residual deficits; Z80.9 Family history of malignant neoplasm, unspecified; Z82.5 Family history of asthma and other chronic lower respiratory diseases; Z83.3 Family history of diabetes mellitus; Z82.49 Family history of ischemic heart disease and other diseases of the circulatory system; Z82.3 Family history of stroke; Z82.0 Family history of epilepsy and other diseases of the nervous system
CPT/HCPCS: 36415; 71045; 80048; 80053; 82550; 84484; 85025; 85610; 85730; 93005; 94640; 94664; G0378

== ENCOUNTER 2019-07-22 12:44 | Observation (INO) | payer OTHER ==
[~2019-07-22] VITALS: Ht 152.4 cm; Wt 68.0 kg
[2019-07-22 13:09] LABS: BASOPHILS % (AUTO) 0.7 % (0.0-5.0); EOSINOPHILS % (AUTO) 2.9 % (0.0-8.0); HEMATOCRIT 44.6 % (36-48); LYMPHOCYTES % (AUTO) 31.5 % (21.0-51.0); MEAN CORPUSCULAR HEMOGLOBIN 32.6 pg (27.0-33.0); MEAN CORPUSCULAR HGB CONC 33.9 g/dL (32.0-36.0); MEAN CORPUSCULAR VOLUME 96.3 fL (79-99); MONOCYTES % (AUTO) 8.4 % (3.0-13.0); NEUTROPHILS % (AUTO) 56.3 % (40.0-77.0); PLATELET COUNT (AUTO) 280 K/uL (130-400); RED BLOOD CELL COUNT(AUTO) 4.63 MIL/uL (4.00-5.50); RED CELL DISTRIBUTION WIDTH 12.4 % (11.0-15.5); WHITE BLOOD COUNT (AUTO) 8.4 K/uL (4.8-10.8)
[2019-07-22 13:20] LABS: PARTIAL THROMBOPLASTIN TIME 47.2 SEC (26.3-35.5)
[2019-07-22 13:21] LABS: ALBUMIN 3.6 g/dL (3.5-5.0); BILIRUBIN,TOTAL 0.2 mg/dL (0.2-1.0); CREATININE 0.9 mg/dL (0.5-1.5); TOTAL PROTEIN, SERUM 7.2 g/dL (6.0-8.3)
[2019-07-22] MEDS ORDERED: ASPIRIN 325 MG TABLET ONE (13:27)
[2019-07-22 13:36] LABS: B-TYPE NATRIURETIC PEPTIDE 50 pg/mL (0-100)
[2019-07-22 13:58] LABS: INR 5.05 (0.85-1.15); PROTHROMBIN TIME 51.2 SEC (9.6-11.6)
[2019-07-22] MEDS ORDERED: ONDANSETRON HCL 4 MG/2 ML VIAL IVP PRN (15:15)
[2019-07-22 15:53] LABS: CREATINE KINASE, TOTAL 128 U/L (21-232); MYOGLOBIN 21 ng/mL (10-92); TROPONIN I < 0.04 ng/mL (0.00-0.06)
[2019-07-22 17:20] VITALS: BP 100/61
[2019-07-22 19:36] VITALS: BP 107/64
[2019-07-22] MEDS: METOPROLOL TARTRATE 25 MG TAB PO SCH (20:08)
[2019-07-22] MEDS: FAMOTIDINE 20MG TAB 20 MG TAB PO SCH (20:08)
[2019-07-22] MEDS ORDERED: ALBUTEROL SULFATE 0.042% 1.25 MG/3 ML INH IH SCH (21:00)
[2019-07-22] MEDS ORDERED: CYCLOBENZAPRINE HCL 10 MG TABLET PO SCH (21:00)
[2019-07-22] MEDS ORDERED: ATORVASTATIN CALCIUM 40 MG TABLET PO SCH (21:00)
--- NOTE | 2019-07-22 21:00 | NUR ---
PT ABLE TO TAKE MEDIATIONS DIRECTED. NO CHEST PAIN NOTED. EKG FOR 2100 AND NEXT DAY 0500.
[2019-07-22] MEDS: CALCIUM CARBONATE 500 MG TABLET PO SCH (21:14)
[2019-07-22 23:44] VITALS: BP 92/55
[2019-07-23 03:30] VITALS: BP 96/52
[2019-07-23 04:12] LABS: BASOPHILS % (AUTO) 0.4 % (0.0-5.0); EOSINOPHILS % (AUTO) 3.1 % (0.0-8.0); HEMATOCRIT 42.4 % (36-48); LYMPHOCYTES % (AUTO) 36.8 % (21.0-51.0); MEAN CORPUSCULAR HEMOGLOBIN 32.8 pg (27.0-33.0); MEAN CORPUSCULAR HGB CONC 33.5 g/dL (32.0-36.0); MEAN CORPUSCULAR VOLUME 97.9 fL (79-99); MONOCYTES % (AUTO) 10.1 % (3.0-13.0); NEUTROPHILS % (AUTO) 49.5 % (40.0-77.0); PLATELET COUNT (AUTO) 276 K/uL (130-400); RED BLOOD CELL COUNT(AUTO) 4.33 MIL/uL (4.00-5.50); RED CELL DISTRIBUTION WIDTH 12.3 % (11.0-15.5); WHITE BLOOD COUNT (AUTO) 7.4 K/uL (4.8-10.8)
[2019-07-23 04:26] LABS: ALANINE AMINOTRANSFERASE 33 U/L (12-78); ASPARTATE AMINOTRANSFERASE 20 U/L (10-37); BILIRUBIN,TOTAL 0.2 mg/dL (0.2-1.0); CARBON DIOXIDE 29 mmol/L (21-32); CHLORIDE 106 mmol/L (101-111); CREATINE KINASE, TOTAL 86 U/L (21-232); CREATININE 0.9 mg/dL (0.5-1.5); GLOMERULAR FILTR. RATE CALC 68 mL/min (>60); GLUCOSE,RANDOM 104 mg/dL (70-105); MYOGLOBIN 22 ng/mL (10-92); SODIUM SERUM 142 mmol/L (136-145); TOTAL PROTEIN, SERUM 6.2 g/dL (6.0-8.3); TROPONIN I < 0.04 ng/mL (0.00-0.06); UREA NITROGEN, BLOOD 17 mg/dL (7-18)
[2019-07-23] MEDS: ALBUTEROL SULFATE 0.042% 1.25 MG/3 ML INH IH SCH ×2 (06:00→18:00)
[2019-07-23] MEDS: IPRATROPIUM/ALBUTEROL SULFATE 3 ML SOLUTION IH PRN ×2 (06:12→18:24)
[2019-07-23 06:36] LABS: INR 3.54 (0.85-1.15); PROTHROMBIN TIME 36.4 SEC (9.6-11.6)
[2019-07-23 08:00] VITALS: BP 115/47
[2019-07-23] MEDS: FAMOTIDINE 20MG TAB 20 MG TAB PO SCH (08:36)
[2019-07-23] MEDS: CALCIUM CARBONATE 500 MG TABLET PO SCH (08:36)
[2019-07-23] MEDS: METOPROLOL TARTRATE 25 MG TAB PO SCH (08:37)
[2019-07-23] MEDS ORDERED: CYANOCOBALAMIN (VITAMIN B-12) 1,000 MCG TABLET PO SCH (09:00)
[2019-07-23] MEDS ORDERED: DOCUSATE SODIUM 100 MG CAP PO SCH (09:00)
[2019-07-23] MEDS ORDERED: ASCORBIC ACID 500 MG TAB PO SCH (09:00)
[2019-07-23] MEDS ORDERED: LISINOPRIL 5 MG TABLET PO SCH (09:00)
[2019-07-23] MEDS ORDERED: ASPIRIN 81MG TAB.CHEW PO SCH (09:00)
[2019-07-23] MEDS ORDERED: LORATADINE 10 MG TABLET PO SCH (09:00)
[2019-07-23] MEDS ORDERED: FUROSEMIDE 20 MG TABLET PO SCH (09:00)
--- NOTE | 2019-07-23 11:59 | NUR ---
chart reviewed, acf uploaded, note made of pending cardio consult Addendum: 07/23/19 at 1159 by JULES FRANKS RN CM Amended: Links added.
[2019-07-23 12:00] VITALS: BP 95/56
[2019-07-23 13:30] LABS: CREATINE KINASE, TOTAL 86 U/L (21-232); MYOGLOBIN 17 ng/mL (10-92); TROPONIN I < 0.04 ng/mL (0.00-0.06)
[2019-07-23 16:00] VITALS: BP 99/51
[2019-07-23 19:31] VITALS: BP 116/59
--- NOTE | 2019-07-23 19:50 | NUR ---
PT DISCHARGED AT THIS TIME. NO DISTRESS NOTED. TELE PACK REMOVED. IV REMOVED. PT DC PACKET GIVEN. NO RXS. PT TO CONTINUE HOME MEDICATIONS.
== END 2019-07-23 19:47 | disposition home or self-care (01) ==
LOC: EDH 12:44 → 4AH 16:52
PROVIDERS: ADMIT Internal Medicine; ATTEND Internal Medicine
DX: R07.89 Other chest pain (principal); I20.9 Angina pectoris, unspecified; R79.1 Abnormal coagulation profile; I25.2 Old myocardial infarction; I10 Essential (primary) hypertension; F17.210 Nicotine dependence, cigarettes, uncomplicated; Z86.73 Personal history of transient ischemic attack (TIA), and cerebral infarction without residual deficits; Z86.718 Personal history of other venous thrombosis and embolism; Z86.711 Personal history of pulmonary embolism; Z90.49 Acquired absence of other specified parts of digestive tract; Z90.710 Acquired absence of both cervix and uterus; Z90.89 Acquired absence of other organs; Z79.01 Long term (current) use of anticoagulants; Z79.82 Long term (current) use of aspirin; Z79.899 Other long term (current) drug therapy
CPT/HCPCS: 36415 ×2; 71045; 80053 ×2; 82550 ×4; 83874 ×3; 83880; 84484 ×4; 85025 ×2; 85610 ×2; 85730; 93005 ×3; 94640 ×2; 94664; 99285; G0378 ×28

== ENCOUNTER 2020-10-04 22:07 | Emergency (ER) | payer MEDICAID ==
[~2020-10-04] VITALS: Ht 152.4 cm; Wt 72.6 kg
[~2020-10-04 22:07] MED LIST changes: +ALBU0.63 IH; +ASCO500C6 PO; +ATOR40TA71 PO; +CALC-1125 PO; +CALC-1220 PO; -CALC600T12 PO; -CLOP75TA14 PO; +CLOP75TA32 PO; -CYCL10 PO; +CYCL5TAB PO; -DOCU-116 PO; +DOCU100C33 PO; -FAMO-136 PO; +FAMO20TA8 PO; -LISI-617 PO; +LISI-809 PO; +LORA-699 PO; -LORA10CA9 PO; -NITR0.4T SL
[2020-10-04 22:58] VITALS: BP 123/62
[2020-10-04 23:24] LABS: BASOPHILS % (AUTO) 0.4 % (0.0-5.0); EOSINOPHILS % (AUTO) 1.4 % (0.0-8.0); HEMATOCRIT 39.7 % (36-48); LYMPHOCYTES % (AUTO) 21.9 % (21.0-51.0); MEAN CORPUSCULAR HEMOGLOBIN 27.3 pg (27.0-33.0); MEAN CORPUSCULAR HGB CONC 30.5 g/dL (32.0-36.0); MEAN CORPUSCULAR VOLUME 89.4 fL (79-99); MONOCYTES % (AUTO) 9.9 % (3.0-13.0); NEUTROPHILS % (AUTO) 66.1 % (40.0-77.0); PLATELET COUNT (AUTO) 264 K/uL (130-400); RED BLOOD CELL COUNT(AUTO) 4.44 MIL/uL (4.00-5.50); RED CELL DISTRIBUTION WIDTH 15.2 % (11.0-15.5); WHITE BLOOD COUNT (AUTO) 11.8 K/uL (4.8-10.8)
[2020-10-04 23:37] LABS: CREATININE 0.7 mg/dL (0.5-1.5); POTASSIUM 3.7 mmol/L (3.5-5.1)
[2020-10-04 23:42] LABS: ALBUMIN 3.4 g/dL (3.5-5.0); BILIRUBIN,TOTAL 0.2 mg/dL (0.2-1.0); MAGNESIUM 2.2 mg/dL (1.80-2.40); TOTAL PROTEIN, SERUM 7.2 g/dL (6.0-8.3)
[2020-10-04 23:54] LABS: INR 4.86 (0.85-1.15); PROTHROMBIN TIME 45.9 SEC (9.6-11.6)
[2020-10-04 23:56] LABS: B-TYPE NATRIURETIC PEPTIDE 80 pg/mL (0-100)
[2020-10-05 01:15] VITALS: BP 120/63
[2020-10-05] MEDS ORDERED: PENICILLIN V POTASSIUM 500 MG TABLET PO ONE (01:30)
[2020-10-05] MEDS ORDERED: ORPHENADRINE CITRATE 30 MG/ML ML IM ONE (01:30)
[2020-10-05] MEDS ORDERED: KETOROLAC 30MG VIAL (30MG/ML) IM ONE (01:30)
[2020-10-05] MEDS ORDERED: ORPHENADRINE CITRATE 30 MG/ML ML ONE (02:05)
[2020-10-05] MEDS ORDERED: KETOROLAC 30MG VIAL (30MG/ML) ONE (02:05)
[2020-10-05] MEDS ORDERED: AMOXICILLIN 500 MG CAPSULE PO ONE ×2 (02:09→02:30)
[2020-10-05 02:16] LABS: APPEARANCE,URINE Clear (CLEAR); BILIRUBIN,URINE Negative (NEGATIVE); COLOR,URINE Yellow (YELLOW); GLUCOSE, URINE (UA) Negative (NEGATIVE); KETONES,URINE Negative (NEGATIVE); LEUKOCYTE ESTERASE ,URINE Negative (NEGATIVE); NITRATE,URINE Negative (NEGATIVE); OCCULT BLOOD,URINE Negative (NEGATIVE); PROTEIN,URINE Negative (NEGATIVE); UROBILINOGEN,URINE 0.2 mg/dL (0.2-1.0)
[2020-10-05] MEDS ORDERED: PENI500T2 PO (04:08)
[2020-10-05] MEDS ORDERED: CYCL10TA7 PO (04:08)
[2020-10-05 04:34] VITALS: BP 122/65
[2020-10-07] MEDS ORDERED: AMOX-426 PO (13:58)
== END 2020-10-05 04:45 | disposition home or self-care (01) ==
LOC: EDH 22:07
DX: M54.5 Low back pain (principal); R07.89 Other chest pain; K05.10 Chronic gingivitis, plaque induced; I10 Essential (primary) hypertension; I25.10 Atherosclerotic heart disease of native coronary artery without angina pectoris; F17.200 Nicotine dependence, unspecified, uncomplicated; I25.2 Old myocardial infarction; Z88.5 Allergy status to narcotic agent; Z88.8 Allergy status to other drugs, medicaments and biological substances; R79.1 Abnormal coagulation profile; Z79.01 Long term (current) use of anticoagulants; Z79.1 Long term (current) use of non-steroidal anti-inflammatories (NSAID); Z86.711 Personal history of pulmonary embolism; Z86.73 Personal history of transient ischemic attack (TIA), and cerebral infarction without residual deficits; Z79.899 Other long term (current) drug therapy; Z95.5 Presence of coronary angioplasty implant and graft; Z90.710 Acquired absence of both cervix and uterus; Z90.49 Acquired absence of other specified parts of digestive tract
CPT/HCPCS: 36415; 71045; 74176; 80053; 81003; 82550; 83735; 83880; 84484 ×2; 85025; 85610; 93005 ×2; 96372 ×2; 99285; J1885; J2360

== ENCOUNTER 2021-04-08 16:57 | Emergency (ER) | payer MEDICAID ==
[~2021-04-08] VITALS: Ht 152.4 cm; Wt 68.0 kg
[~2021-04-08 16:57] MED LIST changes: +AMOX-426 PO; -LISI-809 PO; +LISI5TAB21 PO; -LORA-699 PO
[2021-04-08 17:27] LABS: BASOPHILS % (AUTO) 0.6 % (0.0-5.0); EOSINOPHILS % (AUTO) 1.5 % (0.0-8.0); HEMATOCRIT 39.7 % (36-48); LYMPHOCYTES % (AUTO) 30.9 % (21.0-51.0); MEAN CORPUSCULAR HEMOGLOBIN 25.2 pg (27.0-33.0); MEAN CORPUSCULAR HGB CONC 31.2 g/dL (32.0-36.0); MEAN CORPUSCULAR VOLUME 80.5 fL (79-99); MONOCYTES % (AUTO) 12.2 % (3.0-13.0); NEUTROPHILS % (AUTO) 54.5 % (40.0-77.0); PLATELET COUNT (AUTO) 329 K/uL (130-400); RED BLOOD CELL COUNT(AUTO) 4.93 MIL/uL (4.00-5.50); RED CELL DISTRIBUTION WIDTH 17.3 % (11.0-15.5); WHITE BLOOD COUNT (AUTO) 9.8 K/uL (4.8-10.8)
[2021-04-08] MEDS ORDERED: ONDANSETRON 4MG INJ IVP ONE (17:30)
[2021-04-08] MEDS ORDERED: NITROGLYCERIN 0.4 MG SL TAB SL PRN (17:30)
[2021-04-08 17:34] LABS: CREATININE 0.7 mg/dL (0.5-1.5); POTASSIUM 3.9 mmol/L (3.5-5.1)
[2021-04-08 17:44] LABS: ALBUMIN 3.4 g/dL (3.5-5.0); BILIRUBIN,TOTAL 0.2 mg/dL (0.2-1.0); TOTAL PROTEIN, SERUM 7.4 g/dL (6.0-8.3)
[2021-04-08 17:56] LABS: B-TYPE NATRIURETIC PEPTIDE 47 pg/mL (0-100)
[2021-04-08 18:23] LABS: INR 3.73 (0.85-1.15); PROTHROMBIN TIME 36.1 SEC (9.6-11.6)
[2021-04-08 19:42] VITALS: BP 107/53
== END 2021-04-08 19:58 | disposition home or self-care (01) ==
LOC: EDH 16:57
DX: R07.89 Other chest pain (principal); R09.81 Nasal congestion; Z20.822 Contact with and (suspected) exposure to COVID-19; J44.9 Chronic obstructive pulmonary disease, unspecified; I11.9 Hypertensive heart disease without heart failure; I25.10 Atherosclerotic heart disease of native coronary artery without angina pectoris; I25.2 Old myocardial infarction; E78.5 Hyperlipidemia, unspecified; Z88.6 Allergy status to analgesic agent; Z88.5 Allergy status to narcotic agent; Z88.8 Allergy status to other drugs, medicaments and biological substances; Z86.718 Personal history of other venous thrombosis and embolism; Z90.49 Acquired absence of other specified parts of digestive tract; Z90.710 Acquired absence of both cervix and uterus; Z79.899 Other long term (current) drug therapy
CPT/HCPCS: 36415; 71045; 80053; 83880; 84484 ×2; 85025; 85378; 85610; 87426; 93005; 96374; 99285; J2405

== ENCOUNTER 2021-05-24 18:21 | Emergency (ER) | payer MEDICAID ==
[~2021-05-24] VITALS: Ht 152.4 cm; Wt 70.3 kg
[2021-05-24 19:15] LABS: BASOPHILS % (AUTO) 0.8 % (0.0-5.0); HEMATOCRIT 40.9 % (36-48); LYMPHOCYTES % (AUTO) 33.7 % (21.0-51.0); MEAN CORPUSCULAR HEMOGLOBIN 25.2 pg (27.0-33.0); MEAN CORPUSCULAR HGB CONC 31.1 g/dL (32.0-36.0); MEAN CORPUSCULAR VOLUME 81.3 fL (79-99); MONOCYTES % (AUTO) 10.2 % (3.0-13.0); NEUTROPHILS % (AUTO) 53.1 % (40.0-77.0); PLATELET COUNT (AUTO) 287 K/uL (130-400); RED BLOOD CELL COUNT(AUTO) 5.03 MIL/uL (4.00-5.50); RED CELL DISTRIBUTION WIDTH 17.3 % (11.0-15.5); WHITE BLOOD COUNT (AUTO) 8.4 K/uL (4.8-10.8)
[2021-05-24 19:22] LABS: CREATININE 0.8 mg/dL (0.5-1.5); POTASSIUM 3.9 mmol/L (3.5-5.1)
[2021-05-24 19:27] LABS: ALBUMIN 3.4 g/dL (3.5-5.0); BILIRUBIN,TOTAL 0.2 mg/dL (0.2-1.0)
[2021-05-24 19:28] LABS: INR 4.51 (0.85-1.15); PROTHROMBIN TIME 42.9 SEC (9.6-11.6)
[2021-05-24 20:06] LABS: PARTIAL THROMBOPLASTIN TIME 41.4 SEC (26.3-35.5)
[2021-05-24] MEDS ORDERED: ORPHENADRINE CITRATE 30 MG/ML ML IV ONE (21:30)
[2021-05-24 22:09] LABS: APPEARANCE,URINE CLEAR (CLEAR); BILIRUBIN,URINE NEGATIVE (NEGATIVE); COLOR,URINE YELLOW (YELLOW); GLUCOSE, URINE (UA) NEGATIVE (NEGATIVE); KETONES,URINE NEGATIVE (NEGATIVE); LEUKOCYTE ESTERASE ,URINE NEGATIVE (NEGATIVE); NITRATE,URINE NEGATIVE (NEGATIVE); OCCULT BLOOD,URINE NEGATIVE (NEGATIVE); PROTEIN,URINE NEGATIVE (NEGATIVE); UROBILINOGEN,URINE 0.2 mg/dL (0.2-1.0)
[2021-05-24] MEDS ORDERED: LIDOP TP (22:20)
[2021-05-24] MEDS ORDERED: ORPH-43 PO (22:20)
[2021-05-24 22:30] VITALS: BP 101/50
== END 2021-05-24 22:39 | disposition home or self-care (01) ==
LOC: EDH 18:21
DX: M62.838 Other muscle spasm (principal); M79.601 Pain in right arm; E78.00 Pure hypercholesterolemia, unspecified; I10 Essential (primary) hypertension; J44.9 Chronic obstructive pulmonary disease, unspecified; M81.0 Age-related osteoporosis without current pathological fracture; I25.2 Old myocardial infarction; F17.200 Nicotine dependence, unspecified, uncomplicated; Z79.01 Long term (current) use of anticoagulants; Z88.5 Allergy status to narcotic agent; Z88.8 Allergy status to other drugs, medicaments and biological substances; Z90.49 Acquired absence of other specified parts of digestive tract; Z95.5 Presence of coronary angioplasty implant and graft; Z79.02 Long term (current) use of antithrombotics/antiplatelets; Z79.899 Other long term (current) drug therapy; Z86.718 Personal history of other venous thrombosis and embolism; Z86.73 Personal history of transient ischemic attack (TIA), and cerebral infarction without residual deficits
CPT/HCPCS: 36415; 71045; 80053; 81003; 84484; 85025; 85610; 85730; 93971; 96374; 99285; J2360